=== PATIENT | female | born 1935 | race Caucasian/White ===

== ENCOUNTER 2018-03-03 06:49 | Day surgery (SDC) | payer MEDICARE, OTHER, SELFPAY ==
--- NOTE | 2018-03-02 17:22 | P.OP_ITS ---
Procedure & Clinicians Procedure: Female cataract left Date of service: March 03, 2008 Preoperative diagnoses: 1. Cataract left eye Diabetes Previous dialysis History of stroke Sleep apnea lPost toperative diagnoses: 1. Status post cataract removal with phacoemulsification and intraocular lens implant left eye Procedure: Phacoemulsification with posterior chamber intraocular lens implant left eye Surgeon: Debora Woods MD Complications:None Specimen: None Implant: ZCBOO+22.0 Blood loss: None Anesthesia: Retrobulbar with monitored standby Anesthesiologist: Piter Vázquez MD Description of procedure: Dictated by: Debora Woods MD Copy to: [facility] next
--- NOTE | 2018-03-02 17:36 | PM.OP.1 ---
Procedure & Clinicians Procedure: Female cataract left Date of service: March 03, 2008 Preoperative diagnoses: 1. Cataract left eye Diabetes Previous dialysis History of stroke Sleep apnea Post operative diagnoses: 1. Status post cataract removal with phacoemulsification and intraocular lens implant left eye Procedure: Phacoemulsification with posterior chamber intraocular lens implant left eye Surgeon: Debora Woods MD Complications:None Specimen: None Implant: ZCBOO+22.0 Blood loss: None Anesthesia: Retrobulbar with monitored standby Anesthesiologist: Piter Vázquez MD Description of procedure: Patient is a an 82 year old with decreased vision due to cataract which is affecting activities of daily living. She wants surgery to improve vision. She has a tremor and is on warfarin and is diabetic. She has taken to the operating room and given IV sedation. A retrobulbar block insert consisting of 6 cc of 2% xylocaine without epinephrine mixed half and half with 0.5% Marcaine with 1 cc of hyaluronidase added is placed between the medial and lateral 1/3 of the inferior orbital rim. Lid akinesia is obtain with 1% xylocaine with epinephrine infiltrated along the lid margin. The eye is manually massaged for 30 sec, prepped using Betadine solution, and draped in the usual sterile fashion. Temporal approach was made, a 1 mm side-port incision was made at the 12 o'clock meridian. Phenylephrine 1.5% mixed with 1% xylocaine 0.2 cc was placed into the anterior chamber. Viscoat followed by Mau was then placed. A 2.6 mm clear incision with a 2.6 mm blade was placed at the 3 o'clock meridian. A 360 degree capsulorrhexis style capsulotomy was then performed with a cystitome needle on a Healon. Hydrodelineation and hydrodissection were performed. The phacoemulsification unit is introduced, and sculpting notice used to groove the central lens. It is then removed in chopping mode. Epi nucleus is removed with epinuclear mode and irrigation aspiration was used to remove the peripheral cortex. The posterior capsule is polished. The intraocular lens is selected, inspected, power confirmed, and placed in the posterior chamber. The pupil was constricted. The wound was stromally hydrated and tested for leaks, there was none and was left sutureless. Vigamox 0.1 cc was placed into the anterior chamber. Kenalog 0.2 cc was placed in the superior subconjunctival space. A drop of antibiotic and was placed and the eye was patched and shielded. The patient was stable and returned to the recovery room in excellent condition. Dictated by: Debora Woods MD Copy to: [facility]
--- NOTE | 2018-03-02 17:53 | PM.PREOP ---
Pre-operative Note Interval Note Pre-op Check: History & Physical Reviewed by Physician
[2018-03-03] MEDS: CATARACT EYE COMPOUND (10 DROPS/SYRINGE) 3 DROPS EYE-OP (07:27)
[2018-03-03] MEDS: PROPARACAINE 0.5% OPHTH SOL 2 DROPS EYE-OP (07:29)
[2018-03-03 07:30] VITALS: BMI 32.8
--- NOTE | 2018-03-03 07:49 | PM.PREOP ---
Pre-operative Note Interval Note Pre-op Check: History & Physical Reviewed by Physician
[2018-03-03 07:50] VITALS: BP 144/68; PULSE 67; RESP 16; TEMP 36.4; O2SAT 96
[2018-03-03] MEDS: BALANCED SALT IRRIG SOLN NO.2 15 ML IRRIG.SOLN IRR (08:29)
[2018-03-03] MEDS: CHONDROIDTIN/SOD HYALURONATE 1.05 ML SYRINGE INTRAOCULA (08:30)
[2018-03-03] MEDS: ERYTHROMYCIN OPHTH 1 GM OINT 1 APPLIC EYE-LEFT (08:30)
[2018-03-03] MEDS: HYALURONATE SODIUM 10 MG/ML SYRINGE INJ (08:31)
[2018-03-03] MEDS: LIDOCAINE 1% W/EPI INJ 4 ML INJ (08:31)
[2018-03-03] MEDS: OFLOXACIN 0.3% OPHTH 5 ML 2 DROPS EYE-LEFT (08:32)
[2018-03-03] MEDS: MOXIFLOXACIN OPHTH DROPS 3 ML BOTTLE 2 DROPS INJ (08:32)
[2018-03-03] MEDS: PHENYLEPHRINE/LIDOCAINE 3ML VIAL (OR) EYE-OP (08:33)
[2018-03-03] MEDS: TRIAMCINOLONE 50 MG/5 ML VIAL INJ (08:33)
[2018-03-03] MEDS: BALANCED SALT IRRIG SOLN NO.2 500 ML, EPINEPHrine 1 MG IRR (08:34)
[2018-03-03] MEDS: LIDOCAINE 2% 4 ML, BUPIVACAINE 0.5% (PF) 4 ML, HYALURONIDASE 150 UNIT INJ (08:34)
--- NOTE | 2018-03-03 08:36 | SUR.OPER ---
Supine on eye stretcher, head on extension cradle secured with tape. Arms tucked at sides with blanket. Pillow under knees.
[2018-03-03 09:06] VITALS: BP 140/57; PULSE 63; RESP 16; TEMP 36.6
[2018-03-03 09:25] VITALS: BP 138/62; PULSE 63; RESP 15; TEMP 36.4; O2SAT 97
== END 2018-03-03 09:24 | disposition home or self-care (01) ==
PROVIDERS: Family Provider Internal Medicine; PCP Internal Medicine; Visit Provider Ophthalmology
DX: H25.12 Age-related nuclear cataract, left eye (principal); E11.9 Type 2 diabetes mellitus without complications; G47.33 Obstructive sleep apnea (adult) (pediatric); I10 Essential (primary) hypertension; J44.9 Chronic obstructive pulmonary disease, unspecified; D64.9 Anemia, unspecified; J45.909 Unspecified asthma, uncomplicated; E05.00 Thyrotoxicosis with diffuse goiter without thyrotoxic crisis or storm
CPT/HCPCS: J0171; J2704; J3301; J3470

== ENCOUNTER 2018-09-09 17:53 | Emergency (ER) | payer MEDICARE, OTHER, SELFPAY ==
[2018-09-09 18:02] VITALS: BP 156/60; PULSE 65; RESP 18; TEMP 36.3; O2SAT 100
--- NOTE | 2018-09-09 18:09 | DI.RAD.S_ITS ---
PROCEDURE: XR WRIST RT 2V INDICATIONS: right arm pain after fall TECHNIQUE: 2 views of the wrist were acquired. COMPARISON: None. FINDINGS: Bones: No fractures or dislocations. No suspicious bony lesions. Severe first CMC joint osteoarthritis. Radiocarpal osteophyte is noted. There is widening of the scapholunate interval which can be associated with ligament injury. Scaphoid view: Not requested Soft tissues: No suspicious soft tissue calcifications. IMPRESSION: 1. No fracture. No acute osseous lesion. If there are persistent symptoms or clinical suspicion for pathology, then repeat radiographs or advanced imaging (CT, MRI or bone scan) should be considered for further evaluation. 2. Slight widening of the scapholunate interval which can be associated with scapholunate ligament injury. Recommend nonemergent MRI of the wrist are there is clinical concern for ligamentous injury. Dictated by: Sylwia Sy MD, PhD on 09/09/2018 at 18:36 Approved by: Sylwia Sy MD, PhD on 09/09/2018 at 18:38
--- NOTE | 2018-09-09 18:09 | DI.RAD.S_ITS ---
PROCEDURE: XR ELBOW RT 2V INDICATIONS: right arm pain after fall TECHNIQUE: 2 views of the elbow were acquired. COMPARISON: None. FINDINGS: Bones: No fractures or dislocations. No suspicious bony lesions. Soft tissues: No elbow joint effusion. No suspicious soft tissue calcifications. Multiple surgical clips noted in the antecubital fossa soft tissues. IMPRESSION: No fracture. No acute osseous lesion. If there are persistent symptoms or clinical suspicion for pathology, then repeat radiographs or advanced imaging (CT, MRI or bone scan) should be considered for further evaluation. Dictated by: Sylwia Sy MD, PhD on 09/09/2018 at 18:38 Approved by: Sylwia Sy MD, PhD on 09/09/2018 at 18:39
--- NOTE | 2018-09-09 18:09 | DI.RAD.S_ITS ---
PROCEDURE: XR SHOULDER RT MIN 2V INDICATIONS: right arm pain after fall TECHNIQUE: 3 views of the shoulder were acquired. COMPARISON: [facility], CR, XR ELBOW RT 2V, 09/09/2018, 18:12. FINDINGS: Bones: Lucency noted in the lateral margin of the right humeral head compatible with nondisplaced fracture. Soft tissues: No suspicious soft tissue calcifications. IMPRESSION: Nondisplaced proximal right humerus fracture. Dictated by: Sylwia Sy MD, PhD on 09/09/2018 at 18:39 Approved by: Sylwia Sy MD, PhD on 09/09/2018 at 18:41
--- NOTE | 2018-09-09 18:14 | ED.FALL ---
HPI - Fall General Chief Complaint: Fall Stated Complaint: Fall Time Seen by Provider: 09/09/18 18:14 Source: patient Mode of arrival: ambulatory Limitations: no limitations History of Present Illness HPI Narrative: 83-year-old female on Coumadin here for evaluation of a mechanical fall that happened just prior to arrival. She states that she tripped over an object that was on the ground. Landed on her right side. Did not hit her head. No loss of consciousness. Does complain of pain in her right shoulder and right elbow. Has an abrasion over her right forearm. Was able to ambulate afterwards. Related Data Home Medications Medication Instructions Recorded Confirmed [IMDUR] 60 mg OR Q DAY #0 01/23/17 03/03/18 carvedilol [Coreg] 6.25 mg PO BID #0 01/23/17 03/03/18 warfarin [Coumadin] 5.5 mg PO QDAY #0 01/23/17 03/03/18 Plavix 75 mg PO DAILY 03/03/18 03/03/18 amlodipine 5 mg PO DAILY 03/03/18 03/03/18 Previous Rx's Medication Instructions Recorded hydrocodone-acetaminophen [Lisco] 1 tab PO Q4-6H PRN #10 tab 09/09/18 Allergies Allergy/AdvReac Type Severity Reaction Status Date / Time lisinopril Allergy Mild COUGH Verified 03/03/18 07:13 lovastatin Allergy Mild MOUTH Verified 03/03/18 07:13 BROKE OUT IN SORES niacin Allergy Mild RED AND Verified 03/03/18 07:13 ITCHY ALL OVER Sulfa (Sulfonamide Allergy Mild CHILDHOOD Verified 03/03/18 07:13 Antibiotics) REACTION azathioprine Allergy Unknown Verified 03/03/18 07:13 shellfish derived Allergy Unknown Verified 03/03/18 07:13 [SHELLFISH DERIVED] leflunomide AdvReac Unknown Verified 03/03/18 07:13 Review of Systems Constitutional Denies fever(s) and Denies weakness Eyes Denies change in vision ENT Ears, Nose, Mouth, and Throat: Denies vertigo, Denies dizziness, Denies neck pain and Denies disequilibrium Cardiovascular Denies chest pain, Denies palpitations and Denies dyspnea Respiratory Denies dyspnea Gastrointestinal Gastrointestinal: Denies abdominal pain, Denies nausea and Denies vomiting Musculoskeletal Denies neck pain, Denies numbness and Denies tingling Comments: Right shoulder pain right elbow pain Integumentary/Breasts Comments: abrasion of the right forearm Neurologic Denies vertigo, Denies dizziness, Denies focal weakness, Denies numbness, Denies radicular pain, Denies tingling, Denies disequilibrium and Denies weakness Endocrine Denies palpitations Hematologic/Lymphatic Comments: on Coumadin Exam Initial Vital Signs Initial Vital Signs: Vital Signs Temperature 97.3 F L 09/09/18 18:02 Pulse Rate 65 09/09/18 18:02 Respiratory Rate 18 09/09/18 18:02 Blood Pressure 156/60 H 09/09/18 18:02 Pulse Oximetry 100 09/09/18 18:02 HENMT Head: normal to inspection and normocephalic Resp Effort & Inspection: normal respiratory effort Cardio Rate: regular rate Back/Spine/Pelvis Cervical Spine: No pain with cervical ROM, No cervical spasm and No cervical spinal tenderness Thoracic/Lumbar Spine: No thoracic spinal tenderness and No lumbar spinal tenderness Skin Other: 1 cm abrasion to the ulnar aspect of the right forearm. No active bleeding. Neuro General: alert, awake and oriented x3 Speech: speech normal Extrem Other: Tenderness to palpation on the right shoulder with limited range of motion in abduction. Right elbow unremarkable. Right wrist unremarkable. Right hand unremarkable. Bilateral lower extremities unremarkable. Hips unremarkable. Psych Appearance: grossly normal and well kempt [facility] Medical History Coronary artery disease (Acute) Hyperlipidemia (Acute) Hypertension (Acute) Surgical History Hx of CABG (Acute) Social History household members: spouse Course Orders Ordered: ED Orders 09/09/18 18:09 XR elbow RT min 3V Stat XR shoulder RT min 2V Stat XR wrist RT min 3V Stat Discontinued Medications Hydrocodone Bitart/Acetaminophen (Lisco 5/325) 1 tab PO NOW ONE Stop: 09/09/18 19:02 Last Admin: 09/09/18 19:21 Dose: 1 tab Hydrocodone Bitart/Acetaminophen (Vicodin Prepack) 1 bottle MISC SEEINSTR ONE Stop: 09/09/18 19:04 Last Admin: 09/09/18 19:21 Dose: 1 bottle Vital Signs - 8 hr 09/09/18 18:02 09/09/18 19:26 Temperature 97.3 F L Pulse Rate 65 70 Respiratory Rate 18 19 Blood Pressure 156/60 H Blood Pressure [Left Arm] 168/86 H Pulse Oximetry 100 99 MDM - Fall Imaging Data x-ray elbow: Radiologist's impression: PROCEDURE: XR ELBOW RT 2V INDICATIONS: right arm pain after fall TECHNIQUE: 2 views of the elbow were acquired. COMPARISON: None. FINDINGS: Bones: No fractures or dislocations. No suspicious bony lesions. Soft tissues: No elbow joint effusion. No suspicious soft tissue calcifications. Multiple surgical clips noted in the antecubital fossa soft tissues. IMPRESSION: No fracture. No acute osseous lesion. If there are persistent symptoms or clinical suspicion for pathology, then repeat radiographs or advanced imaging (CT, MRI or bone scan) should be considered for further evaluation. Dictated by: Sylwia Sy MD, PhD on 09/09/2018 at 18:38 Approved by: Sylwia Sy MD, PhD on 09/09/2018 at 18:39 x-ray shoulder: Radiologist's impression: [address] [address] XRay Report Signed Patient: Joselyn Anderson R#: [id number] : 6Acct:[id number] Age/Sex: 83 / FDate of Service: 09/09/18 Loc: ED Accession Number: [id number] Procedure: XR shoulder RT min 2V Ordering Provider: Memo Kelsey D.O. PROCEDURE: XR SHOULDER RT MIN 2V INDICATIONS: right arm pain after fall TECHNIQUE: 3 views of the shoulder were acquired. COMPARISON: [facility] , XR ELBOW RT 2V, 09/09/2018, 18:12. FINDINGS: Bones: Lucency noted in the lateral margin of the right humeral head compatible with nondisplaced fracture. Soft tissues: No suspicious soft tissue calcifications. IMPRESSION: Nondisplaced proximal right humerus fracture. Dictated by: Sylwia Sy MD, PhD on 09/09/2018 at 18:39 Approved by: Sylwia Sy MD, PhD on 09/09/2018 at 18:41 x-ray wrist: Radiologist's impression: [address] [address] XRay Report Signed Patient: Joselyn Anderson LMR#: [id number] : 6Acct:[id number] Age/Sex: 83 / FDate of Service: 09/09/18 Loc: ED Accession Number: [id number] Procedure: XR wrist RT min 3V Ordering Provider: Memo Kelsey D.O. PROCEDURE: XR WRIST RT 2V INDICATIONS: right arm pain after fall TECHNIQUE: 2 views of the wrist were acquired. COMPARISON: None. FINDINGS: Bones: No fractures or dislocations. No suspicious bony lesions. Severe first CMC joint osteoarthritis. Radiocarpal osteophyte is noted. There is widening of the scapholunate interval which can be associated with ligament injury. Scaphoid view: Not requested Soft tissues: No suspicious soft tissue calcifications. IMPRESSION: 1. No fracture. No acute osseous lesion. If there are persistent symptoms or clinical suspicion for pathology, then repeat radiographs or advanced imaging (CT, MRI or bone scan) should be considered for further evaluation. 2. Slight widening of the scapholunate interval which can be associated with scapholunate ligament injury. Recommend nonemergent MRI of the wrist are there is clinical concern for ligamentous injury. Dictated by: Sylwia Sy MD, PhD on 09/09/2018 at 18:36 Approved by: Sylwia Sy MD, PhD on 09/09/2018 at 18:38 [facility] Narrative Medical decision making narrative: This was an obvious mechanical fall. She is on Coumadin but did not hit her head. Will hold on head CT. Her physical exam is consistent with a right proximal humerus fracture which was seen on the x-rays. Skin abrasion is not amenable to stitches. She was given care instructions with regard to this. She was given a sling. We did discuss the proximal humerus fracture. We did discuss the importance of early mobility. Cervical spine cleared by nexus. Patient given return precautions. She was given a CD with the images from her x-rays to follow up with the Orthopedic Department on the [facility]. Both her and her expressed understanding and agreement. Discharge Plan Departure Patient Disposition: Home Clinical Impression: Fracture, humerus closed, Fall, Abrasion of skin Instructions: How to Prevent Falls, DI for Abrasion, Humeral Shaft Fracture Activity Restrictions/Additional Instructions: I recommend that tomorrow you contact Your primary care doctor and also the Orthopedic Department on the [facility]. take the CD that you were given with your x-rays on it to the Orthopedic Department. Take the pain medication you were given this evening as needed for breakthrough pain. Return to the emergency department for any new or worsening symptoms Prescriptions: New hydrocodone-acetaminophen [Lisco] 5-325 mg tablet 1 tab PO Q4-6H PRN (Reason: pain) Qty: 10 RF: 0 No Action warfarin [Coumadin] 5 MG tablet 5.5 mg PO QDAY Qty: 0 RF: 0 carvedilol [Coreg] 6.25 MG tablet 6.25 mg PO BID Qty: 0 RF: 0 [IMDUR] 60 mg OR Q DAY Qty: 0 RF: 0 amlodipine 5 mg Tablet 5 mg PO DAILY RF: 0 Plavix 75 mg PO DAILY RF: 0
[2018-09-09] MEDS: HYDROCODONE/ACET 5/325 TABLET 1 TAB PO (19:21)
[2018-09-09] MEDS: HYDROCODONE/ACET 5/325 PREPACK 1 BOTTLE MISC (19:21)
[2018-09-09 19:26] VITALS: BP 168/86; PULSE 70; RESP 19; O2SAT 99
== END 2018-09-09 20:22 | disposition home or self-care (01) ==
PROVIDERS: Emergency Provider Emergency Medicine; Family Provider Internal Medicine; PCP Internal Medicine
DX: S42.291A Other displaced fracture of upper end of right humerus, initial encounter for closed fracture (principal); S50.811A Abrasion of right forearm, initial encounter; W01.0XXA Fall on same level from slipping, tripping and stumbling without subsequent striking against object, initial encounter; Z79.01 Long term (current) use of anticoagulants
CPT/HCPCS: 73030; 73080; 73110; 99282; 99283

== ENCOUNTER → 2020-08-27 09:17 | Outpatient (CLI) | payer MEDICARE, OTHER, SELFPAY ==
[2020-08-27 11:35] LABS: COVID19 -Nasal RAPID Negative (Negative)
== END ==
PROVIDERS: Family Provider Internal Medicine; PCP Internal Medicine; Visit Provider Physician Assistant
DX: Z11.59 Encounter for screening for other viral diseases (principal)
CPT/HCPCS: 87635

== ENCOUNTER 2020-08-28 10:24 | Day surgery (SDC) | payer MEDICARE, OTHER, SELFPAY ==
[2020-08-24 15:05] VITALS: BMI 31.6
[2020-08-28 11:19] VITALS: BP 154/69; PULSE 74; RESP 16; TEMP 36.3; O2SAT 94; BMI 31.6
--- NOTE | 2020-08-28 12:32 | PM.PREOP ---
Pre-operative Note COVID-19 COVID-19 status: Negative Result date/Date tested (Pos, Neg/Pending): 08/27/20 Interval Note History & Physical reviewed/Exam performed by Physician: Yes Changes to H&P: No
--- NOTE | 2020-08-28 12:37 | SUR.OPER ---
Supine on padded OR bed, head on pillow, left arm secured on padded arm boards at <90 degrees abduction, right arm prepped into field and supported on hand table, legs uncrossed, safety belt at thigh, tape over blanket over lower legs.
[2020-08-28] MEDS: BUPIVACAINE 0.5% W/ EPI (PF) 30 ML VIAL INJ (13:06)
[2020-08-28 13:20] VITALS: BP 151/66; PULSE 65; RESP 12; TEMP 36.7; O2SAT 95
--- NOTE | 2020-08-28 13:22 | PM.OP.1 ---
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 Post-op diagnosis: same Procedure & Clinicians Procedure: Manipulation under anesthesia of the PIP joint of the right ring finger. Right ring finger A1 samantha release. Right ring finger contracture release. Same procedure as scheduled: Yes Indications: Significant contracture to the PIP joint of the right ring finger. Surgeon: Vasiliy Squires Click Yes if Unassisted: Yes Anesthesia Type: MAC +/- Operative Notes Closure Type: primary Estimated Blood Loss (mL): 0 Blood products transfused: none Tourniquet time (min): 11 Procedure in detail: On date of service, patient was met in the holding area. The surgery was once again discussed with the patient and any remaining questions or concerns were answered fully. The operative site was signed and witnessed by the OR staff. Patient was taken back to the operating theater and placed on the operating table in a supine position. Great care was taken to ensure that all bony prominences were properly padded. Time-out was performed verifying patient's name, procedure, and operative site. A well-padded tourniquet was placed up along the upper extremity. The arm was then prepped and draped in the normal sterile fashion. Esmarch was used to exsanguinate the limb and the tourniquet was turned up to 250 mm of mercury. An incision was made in the distal palmar crease in line with the ring finger. Fifteen blade was used to incise through skin and fascial tissue. Blunt dissection was performed with tenotomy scissors until the Flexor tendon was visualized as well as the neurovascular bundles on either side.. The neurovascular bundles were found And protected. The A1 samantha was sharply split along roof of the tunnel. Palmar scarring proximal to the A1 samantha was excised sharply using a 15 blade. This on locked the finger. Patient still had a contracture at the PIP joint. A manipulation under anesthesia was performed breaking up any stiffness or scarring at the PIP joint. This allowed us to fully extend both the MCP as well as PIP joints. The digital nerves were inspected and were free of any damage throughout the entire incision. The wound was then copiously irrigated and then closed with 5 0 nylon. Finger was cleaned, dried, and dressed. Patient was placed into a splint keeping the Finger fully extended. Patient was taken to the PACU in stable condition. 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 After that it is just nighttime splinting. At that point no restrictions to range of motion throughout the day. No lifting more than 2-3 lb.
[2020-08-28] MEDS: HYDROCODONE/ACET 5/325 TABLET 1 TAB PO (13:49)
[2020-08-28 14:00] VITALS: BP 128/82; PULSE 61; RESP 16; TEMP 36.7; O2SAT 96
--- NOTE | 2020-08-28 14:16 | SUR.PHASEII ---
Pt states right hand and fingers are waking up and feel tingly. Oxycodone given prophylactically at 1349.
== END 2020-08-28 14:05 | disposition home or self-care (01) ==
PROVIDERS: Family Provider Internal Medicine; PCP Internal Medicine; Referring Provider Internal Medicine; Visit Provider Orthopaedic Surgery
PROC: (CPT 26055; principal; 2020-08-28 12:00)
DX: M65.341 Trigger finger, right ring finger (principal); M65.332 Trigger finger, left middle finger; M24.541 Contracture, right hand; J44.9 Chronic obstructive pulmonary disease, unspecified; Z86.73 Personal history of transient ischemic attack (TIA), and cerebral infarction without residual deficits; I25.2 Old myocardial infarction; Z79.01 Long term (current) use of anticoagulants
CPT/HCPCS: 26123; 85610

== ENCOUNTER 2022-03-12 07:27 | Inpatient (IN) | payer MEDICARE, OTHER, SELFPAY ==
[2022-03-12] VITALS (30 sets, daily range): BP systolic 105–165; BP diastolic 34–79; PULSE 55–84; RESP 16–24; TEMP 36.1–38.3; O2SAT 87–99; BMI 36.6
[2022-03-12] MEDS: ALBUTEROL 2.5 MG/3 ML NEB (ADULT) INH ×3 (07:33→19:16)
--- NOTE | 2022-03-12 07:34 | DI.RAD.S_ITS ---
PROCEDURE: XR CHEST 1V INDICATIONS: SOB, cough, fever. TECHNIQUE: One view of the chest was acquired. COMPARISON: [facility], , CHEST 1 VIEW, 01/29/2016, 21:19. FINDINGS: Surgical changes and devices: None. Lungs and pleura: Patchy pulmonary opacities are present within the left lateral mid lung and at the right lung base. No pleural effusion or pneumothorax. Mediastinum: Mediastinal contours appear normal. Heart size is normal. Bones and chest wall: No suspicious bony lesions. Severe degenerative changes are present at the bilateral glenohumeral joints. Overlying soft tissues appear unremarkable. IMPRESSION: Patchy bilateral pulmonary consolidation suspicious for multifocal pneumonia. Short interval follow-up recommended to exclude underlying neoplasm. Dictated by: Karla Waldrop M.D. on 03/12/2022 at 8:43 Approved by: Karla Waldrop M.D. on 03/12/2022 at 8:44
--- NOTE | 2022-03-12 07:37 | ED_ITS ---
HPI - SOB/Dyspnea General Chief Complaint: Shortness of Breath/Dyspnea Stated Complaint: COPD exacerbation Time Seen by Provider: 03/12/22 07:34 Source: patient, EMS and old records reviewed Mode of arrival: EMS Limitations: no limitations History of Present Illness HPI Narrative: This is a 86-year-old female who presents for shortness of breath with a history of COPD, prior CABG with infection of sternotomy and removal of wires and washout, with CKD with prior dialysis from 2014 to 2015 with fistula that has n ot been accessed, hypertension, dyslipidemia, chronic pain, hypothyroidism. Patient states she has had nasal congestion with a cough with grayish productive sputum for the past 2 weeks. She has developed fevers in the last day. She has not had any chest pain or pressure, she has had increasing shortness of breath and overnight had a significant worsening. Patient denies any swelling in her extremities. No nausea or vomiting. She has chronic constipation from her narcotics. Patient has some urinary incontinence but no dysuria, urgency or frequency. Patient does use Advair daily, she states she does not normally use albuterol and has not been using her albuterol at home. EMS found her at 70% room air, initiated Solu-Medrol 125 mg, DuoNeb x1 and non-rebreather at 10 L and patient's oxygen improved to 95%. Patient's primary care is Caryn Heredia. Related Data Home Medications Medication Instructions Recorded Confirmed carvedilol 6.25 mg tablet (Coreg) 6.25 mg PO BID ##0 01/23/17 03/12/22 amlodipine 5 mg tablet 5 mg PO BID 03/03/18 03/12/22 amitriptyline 25 mg tablet 25 mg PO BEDTIME 08/28/20 03/12/22 clopidogrel 75 mg tablet 75 mg PO DAILY 08/28/20 03/12/22 duloxetine 60 mg capsule,delayed 60 mg PO DAILY 08/28/20 03/12/22 release fluticasone 250 mcg-salmeterol 50 1 ea inhalation BID 08/28/20 03/12/22 mcg/dose blistr powdr for inhalation (Advair Diskus) isosorbide mononitrate 120 mg 120 mg PO DAILY 08/28/20 03/12/22 tablet,extended release 24 hr levothyroxine 150 mcg tablet 150 mcg PO DAILY 08/28/20 03/12/22 (Synthroid) rosuvastatin 40 mg tablet 40 mg PO DAILY 08/28/20 03/12/22 tramadol 50 mg tablet 50 mg PO BID 08/28/20 03/12/22 albuterol 90 mcg/actuation aerosol 90 mcg inhalation 4-6XD PRN COPD 03/12/22 03/12/22 inhaler diclofenac sodium 1 % topical gel 0.01 g topical DIRECTED PRN 03/12/22 03/12/22 Pain (Scale Score 1-3) fluticasone 250 mcg-salmeterol 50 1 inh inhalation BID 03/12/22 03/12/22 mcg/dose blistr powdr for inhalation (Advair Diskus) folic acid 1 mg tablet 1 mg PO DAILY 03/12/22 03/12/22 furosemide 40 mg tablet 40 mg PO DAILY 03/12/22 03/12/22 hydrocortisone 5 mg tablet 5 mg PO BID 03/12/22 03/12/22 potassium 20 mg chewable tablet 40 mg PO DAILY 03/12/22 03/12/22 Previous Rx's Medication Instructions Recorded hydrocodone 5 mg-acetaminophen 325 1 tab PO Q4-6H PRN pain #10 tabs 09/09/18 mg tablet ([place]) hydrocodone 5 mg-acetaminophen 325 2 tab PO Q4-6H PRN pain #30 tabs 08/28/20 mg tablet ([place]) doxycycline hyclate 100 mg capsule 100 mg PO BID #2 caps 03/15/22 prednisone 20 mg tablet 40 mg PO DAILY #1 tab 03/15/22 Allergies Allergy/AdvReac Type Severity Reaction Status Date / Time shellfish derived Allergy Severe anaphalxis Verified 08/28/20 11:07 [SHELLFISH DERIVED] lisinopril Allergy Mild COUGH Verified 08/28/20 11:07 lovastatin Allergy Mild MOUTH Verified 08/28/20 11:07 BROKE OUT IN SORES niacin Allergy Mild RED AND Verified 08/28/20 11:07 ITCHY ALL OVER Sulfa (Sulfonamide Allergy Mild CHILDHOOD Verified 08/28/20 11:07 Antibiotics) REACTION azathioprine Allergy Unknown Verified 08/28/20 11:07 leflunomide AdvReac Unknown Verified 08/28/20 11:07 Review of Systems Review of Systems ROS Unobtainable: All systems reviewed & are unremarkable except as noted in HPI and below Patient History Medical History Anemia Asthma COPD (chronic obstructive pulmonary disease) Coronary artery disease CVA (cerebral vascular accident) Depression Diabetes Distal radius fracture, left Distal radius fracture, right DJD (degenerative joint disease) Fibromyalgia History of renal dialysis Hyperlipidemia Hypertension Myocardial infarction Sleep apnea Spinal stenosis Thyroid disease Valvular heart disease Surgical History History of knee replacement History of phacoemulsification of cataract of right eye with intraocular lens implantation (12/02/17) Hx of CABG Hx of cholecystectomy Hx of tonsillectomy Family History (Updated 03/12/22 @ 15:12 by Fidel Nielsen DO) Mother Cancer Father Congestive heart failure Social History household members: spouse Smoking Status: Never smoker alcohol intake: current Smoking Status: Never smoker alcohol intake frequency: holidays/special occasions only Substance Use Type: does not use Exam Narrative Exam Narrative: GEN: Elderly female, alert and oriented x 3, patient appears to be in mild-to- moderate distress. Patient feels warm to the touch. HEENT: Atraumatic, pupils are equal round reactive to light, extraocular movements are intact. HEART: Regular rate and rhythm without murmur, clicks, rubs. Pulses equal in upper lower extremities. Patient does not have any swelling bilateral lower extremities LUNGS:Lungs decreased bilaterally at the bases, patient has some expiratory wheeze bilateral upper anterior chest, no rales, crackles, chest moves symmetrically, positive for tachypnea. Patient speaks in 3-4 word sentences. ABD:bowel sounds normal, soft, non-tender, no guarding, rebound, rigidity, no masses noted, no hepatosplenomegaly :No CVA tenderness MSCL: Non-tender, no muscle atrophy, muscles strength 5/5 upper and lower extremities, full range of motion NEURO:CN 2-12 intact, sensation normal SKIN: No rash, erythema or other skin changes. Initial Vital Signs Initial Vital Signs: Vital Signs Pulse Rate 81 03/12/22 07:29 Pulse Oximetry 96 03/12/22 07:29 Oxygen Delivery Method 03/12/22 07:29 Oxygen Flow Rate 15 03/12/22 07:29 Course Orders Ordered: Discontinued Medications Acetaminophen (Acetaminophen 325 Mg Tablet) 975 mg PO NOW ONE Stop: 03/12/22 07:38 Last Admin: 03/12/22 08:04 Dose: 975 mg Documented By: CARLOS Hydrocodone Bitart/Acetaminophen (Hydrocodone/Acet 5/325 Tablet) 2 tab PO Q4HR PRN PRN Reason: Pain, Moderate (4-6) Albuterol (Albuterol 2.5 Mg/3 Ml Neb (Adult)) 2.5 mg INH NOW ONE Stop: 03/12/22 07:32 Last Admin: 03/12/22 07:33 Dose: 2.5 mg Documented By: RAJWINDER Albuterol (Albuterol 2.5 Mg/3 Ml Neb (Adult)) 2.5 mg INH [id number] [facility] Last Admin: 03/15/22 14:17 Dose: 2.5 mg Documented By: Admin: 03/15/22 11:17 Dose: Not Given Documented By: Admin: 03/15/22 08:34 Dose: 2.5 mg Documented By: Admin: 03/14/22 23:15 Dose: 2.5 mg Documented By: Admin: 03/14/22 19:28 Dose: 2.5 mg Documented By: Admin: 03/14/22 15:57 Dose: 2.5 mg Documented By: Admin: 03/14/22 09:32 Dose: 2.5 mg Documented By: Admin: 03/14/22 09:10 Dose: Not Given Documented By: Admin: 03/14/22 00:31 Dose: Not Given Documented By: Admin: 03/13/22 19:23 Dose: 2.5 mg Documented By: Admin: 03/13/22 16:03 Dose: 2.5 mg Documented By: Admin: 03/13/22 09:40 Dose: 2.5 mg Documented By: Admin: 03/13/22 08:58 Dose: Not Given Documented By: Admin: 03/12/22 23:34 Dose: Not Given Documented By: Admin: 03/12/22 19:16 Dose: 2.5 mg Documented By: Admin: 03/12/22 17:15 Dose: 2.5 mg Documented By: DEJA Albuterol (Albuterol 2.5 Mg/3 Ml Neb (Adult)) 2.5 mg INH [id number] PRN PRN Reason: Shortness Of Breath Albuterol/Ipratropium (Albuterol/Ipratropium 3 Ml Ampul) 3 ml INH RTBID [facility] Amitriptyline HCl (Amitriptyline 25 Mg Tablet) 25 mg PO BEDTIME [facility] Last Admin: 03/14/22 21:52 Dose: 25 mg Documented By: Admin: 03/13/22 21:24 Dose: 25 mg Documented By: Admin: 03/12/22 21:01 Dose: 25 mg Documented By: AMANDEEP Amlodipine Besylate (Amlodipine 5 Mg Tablet) 5 mg PO BID [facility] Last Admin: 03/15/22 09:51 Dose: 5 mg Documented By: Admin: 03/14/22 21:39 Dose: 5 mg Documented By: Admin: 03/14/22 09:20 Dose: 5 mg Documented By: Admin: 03/13/22 21:24 Dose: 5 mg Documented By: Admin: 03/13/22 09:20 Dose: 5 mg Documented By: Admin: 03/12/22 21:01 Dose: 5 mg Documented By: AMANDEEP Budesonide (Budesonide 0.5 Mg/2 Ml Neb) 0.5 mg INH RTBID [facility] Last Admin: 03/15/22 08:35 Dose: 0.5 mg Documented By: Admin: 03/14/22 19:28 Dose: 0.5 mg Documented By: Admin: 03/14/22 09:32 Dose: 0.5 mg Documented By: Admin: 03/13/22 19:24 Dose: 0.5 mg Documented By: Admin: 03/13/22 09:39 Dose: 0.5 mg Documented By: Admin: 03/13/22 09:12 Dose: Not Given Documented By: Admin: 03/12/22 19:16 Dose: 0.5 mg Documented By: SHEILA Carvedilol (Carvedilol 3.125 Mg Tablet) 6.25 mg PO BID [facility] Last Admin: 03/15/22 09:50 Dose: 6.25 mg Documented By: Admin: 03/14/22 21:38 Dose: 6.25 mg Documented By: Admin: 03/14/22 09:42 Dose: 3.125 mg Documented By: Admin: 03/13/22 21:25 Dose: 6.25 mg Documented By: Admin: 03/13/22 09:19 Dose: 6.25 mg Documented By: Admin: 03/12/22 21:01 Dose: 6.25 mg Documented By: AMANDEEP Clopidogrel Bisulfate (Clopidogrel 75 Mg Tablet) 75 mg PO DAILY [facility] Last Admin: 03/14/22 09:21 Dose: 75 mg Documented By: Admin: 03/13/22 09:20 Dose: 75 mg Documented By: TORRI Doxycycline Hyclate (Doxycycline Hyclate 100 Mg Tablet) 100 mg PO BID [facility] Last Admin: 03/15/22 09:51 Dose: 100 mg Documented By: Admin: 03/14/22 21:39 Dose: 100 mg Documented By: Admin: 03/14/22 09:42 Dose: 100 mg Documented By: Admin: 03/13/22 21:25 Dose: 100 mg Documented By: Admin: 03/13/22 09:20 Dose: 100 mg Documented By: Admin: 03/12/22 21:01 Dose: 100 mg Documented By: AMANDEEP Duloxetine HCl (Duloxetine 30 Mg Capsule) 60 mg PO DAILY [facility] Last Admin: 03/15/22 09:50 Dose: 60 mg Documented By: Admin: 03/14/22 09:20 Dose: 60 mg Documented By: Admin: 03/13/22 09:20 Dose: 60 mg Documented By: TORRI Furosemide (Furosemide 40 Mg Tablet) 40 mg PO DAILY [facility] Last Admin: 03/15/22 09:51 Dose: 40 mg Documented By: Admin: 03/14/22 09:21 Dose: 40 mg Documented By: Admin: 03/13/22 09:20 Dose: 40 mg Documented By: TORRI Hydrocortisone (Hydrocortisone 10 Mg Tablet) 5 mg PO BID [facility] Last Admin: 03/14/22 09:20 Dose: 5 mg Documented By: Admin: 03/13/22 21:25 Dose: 5 mg Documented By: Admin: 03/13/22 09:20 Dose: 5 mg Documented By: Admin: 03/12/22 21:04 Dose: 5 mg Documented By: AMANDEEP Piperacillin Sod/Tazobactam (Sod 4.5 gm/ Sodium Chloride) 100 mls @ 200 mls/hr IV NOW ONE Stop: 03/12/22 08:45 Last Infusion: 03/12/22 09:39 Dose: 0 mls/hr Documented By: Admin: 03/12/22 09:06 Dose: 200 mls/hr Documented By: CARLOS Ceftriaxone Sodium 1,000 mg/ (Sodium Chloride) 100 mls @ 200 mls/hr IV Q24H [facility] Last Admin: 03/15/22 11:00 Dose: 200 mls/hr Documented By: Infusion: 03/14/22 11:55 Dose: 200 mls/hr Documented By: Admin: 03/14/22 11:25 Dose: 200 mls/hr Documented By: Infusion: 03/13/22 11:50 Dose: 0 mls/hr Documented By: Admin: 03/13/22 11:19 Dose: 200 mls/hr Documented By: TORRI Insulin Glargine (Insulin Glargine 100 Unit/Ml 3ml Pen) 10 unit SUBCUT BEDTIME [facility] Last Admin: 03/13/22 21:27 Dose: 10 unit Documented By: MAHAD Co-signed By: LEXUS Insulin Glargine (Insulin Glargine 100 Unit/Ml 3ml Pen) 20 unit SUBCUT BEDTIME [facility] Last Admin: 03/14/22 21:41 Dose: 20 unit Documented By: AMANDEEP Co-signed By: BENJY Insulin Human Lispro (Insulin Lispro 100 Unit/Ml 3ml Vial) 0 unit SUBCUT ACHS ANGEL; Protocol Last Admin: 03/15/22 12:47 Dose: 4 unit Documented By: RIVAS Co-signed By: JOSÉ Admin: 03/15/22 09:41 Dose: 2 unit Documented By: RIVAS Co-signed By: JOSÉ Admin: 03/14/22 21:42 Dose: 100 unit Documented By: AMANDEEP Co-signed By: BENJY Admin: 03/14/22 17:22 Dose: 4 unit Documented By: AUSTIN Co-signed By: SHRADDHA Admin: 03/14/22 11:51 Dose: 3 unit Documented By: SHRADDHA Co-signed By: JOSÉ Admin: 03/14/22 08:58 Dose: 4 unit Documented By: SHRADDHA Co-signed By: JOSÉ Admin: 03/13/22 21:27 Dose: 4 unit Documented By: MAHAD Co-signed By: LEXUS Admin: 03/13/22 17:34 Dose: 5 unit Documented By: TORRI Co-signed By: ROBERT Admin: 03/13/22 12:28 Dose: 5 unit Documented By: TORRI Co-signed By: SHRADDHA Admin: 03/13/22 09:20 Dose: 4 unit Documented By: TORRI Co-signed By: JARRELL Admin: 03/12/22 21:06 Dose: 4 unit Documented By: AMANDEEP Co-signed By: CHASE Admin: 03/12/22 16:47 Dose: 5 unit Documented By: AUSTIN Co-signed By: SHRADDHA Isosorbide Mononitrate (Isosorbide Mononitrate Er 30 Mg Tablet) 120 mg PO DAILY [facility] Stop: 03/14/22 12:00 Last Admin: 03/14/22 09:20 Dose: 120 mg Documented By: Admin: 03/13/22 09:18 Dose: 120 mg Documented By: TORRI Isosorbide Mononitrate (Isosorbide Mononitrate Er 30 Mg Tablet) 120 mg PO DAILY@0700 [facility] Last Admin: 03/15/22 10:32 Dose: Not Given Documented By: RIVAS Levothyroxine Sodium (Levothyroxine 150 Mcg Tablet) 150 mcg PO 0600 [facility] Last Admin: 03/15/22 06:34 Dose: 150 mcg Documented By: Admin: 03/14/22 06:11 Dose: 150 mcg Documented By: Admin: 03/13/22 06:00 Dose: 150 mcg Documented By: AMANDEEP Naloxone HCl (Naloxone 0.4 Mg/Ml Vial) 0.2 mg IV Q2MIN PRN PRN Reason: Opiate Reversal Ondansetron HCl (Ondansetron 4 Mg/2 Ml Inj) 4 mg IV Q8HR PRN PRN Reason: Nausea And Vomiting Prednisone (Prednisone 20 Mg Tablet) 40 mg PO DAILY [facility] Last Admin: 03/15/22 09:51 Dose: 40 mg Documented By: Admin: 03/14/22 09:21 Dose: 40 mg Documented By: Admin: 03/13/22 09:20 Dose: 40 mg Documented By: TORRI Tramadol HCl (Tramadol 50 Mg Tablet) 50 mg PO BID [facility] Last Admin: 03/15/22 09:50 Dose: 50 mg Documented By: Admin: 03/14/22 21:52 Dose: Not Given Documented By: Admin: 03/14/22 09:21 Dose: 50 mg Documented By: Admin: 03/13/22 21:25 Dose: 50 mg Documented By: Admin: 03/13/22 09:21 Dose: Not Given Documented By: Admin: 03/12/22 21:02 Dose: 50 mg Documented By: SH Reevaluation(s) Reevaluation #1: Patient has been updated on findings today she is feeling significantly improved she still requiring 2-3 L. She does not normally use home O2. Her is going to go home to picker and sorter load and unload her CPAP and return with it. Time: 09:38 Consultations Consultation #1: Dr. Nielsen, hospitalist accepts for observation. Vital Signs Vital signs: Vital Signs - 8 hr 03/12/22 07:29 03/12/22 07:30 03/12/22 07:31 Temperature Pulse Rate 81 82 82 Respiratory Rate Blood Pressure 165/67 H Pulse Oximetry 96 95 96 03/12/22 07:36 03/12/22 07:42 03/12/22 08:00 Temperature 100.9 F H Pulse Rate 82 80 78 Respiratory Rate 24 16 Blood Pressure 161/66 H Pulse Oximetry 99 90 L 89 L 03/12/22 08:01 03/12/22 08:04 03/12/22 08:30 Temperature 100.9 F H Pulse Rate 75 71 Respiratory Rate Blood Pressure 141/65 H Pulse Oximetry 87 L 94 03/12/22 08:31 03/12/22 09:00 03/12/22 09:01 Temperature Pulse Rate 71 68 71 Respiratory Rate Blood Pressure 137/63 131/60 Pulse Oximetry 95 94 95 03/12/22 09:13 03/12/22 09:30 03/12/22 09:31 Temperature 98.9 F Pulse Rate 65 66 Respiratory Rate Blood Pressure 115/69 Pulse Oximetry 94 94 03/12/22 10:00 03/12/22 10:30 03/12/22 10:31 Temperature Pulse Rate 84 60 60 Respiratory Rate Blood Pressure 108/79 105/50 L Pulse Oximetry 95 97 97 MDM - SOB/Dyspnea Lab Data Result diagrams: 03/15/22 06:24 03/15/22 06:24 Labs: Lab Results 03/12/22 03/12/22 03/12/22 Range/Units 07:30 07:32 07:52 WBC 16.1 H (4.5-11.0) X10^3/uL RBC 4.03 (4.0-5.2) X10^6/uL Hgb 11.8 L (12.0-16.0) g/dL Hct 35.8 L (36-46) % MCV 88.7 (80-100) fL MCH 29.3 (26-34) PG MCHC 33.0 (30-36) % RDW 13.8 (11.6-14.8) % Plt Count 254 (150-400) X10^3/uL Neut % (Auto) 87.2 H (50-75) % Lymph % (Auto) 3.5 L (25-40) % Hardy % (Auto) 8.9 (3-14) % Eos % (Auto) 0.1 L (2-4) % Baso % (Auto) 0.3 (0-2) % Neut # (Auto) 19040 H (5446-8370) /uL Lymph # (Auto) 600 L (5663-2990) /uL Hardy # (Auto) 1400 H (0-900) /uL Eos # (Auto) 0 (0-450) /uL Baso # (Auto) 0 (0-100) /uL PT (10.1-12.7) SECONDS INR (0.9-1.3) APTT (26.4-36.2) SECONDS Sodium (137-145) mmol/L Potassium (3.4-5.1) mmol/L Chloride (98-107) mmol/L Carbon Dioxide (22-32) mmol/L BUN (7-17) mg/dL Creatinine (0.52-1.04) mg/dL Estimated GFR (>60) mL/min BUN/Creatinine Ratio (6-22) Glucose (80-110) mg/dL Lactate (0.7-2.1) mmol/L Calcium (8.4-10.2) mg/dL Total Bilirubin (0.2-1.3) mg/dL AST (14-36) IU/L ALT (<35) IU/L Alkaline Phosphatase (38-126) U/L Total Creatine Kinase (30-135) U/L CK-MB (CK-2) CK-MB (CK-2) Rel Index Troponin I (0.01-0.034) ng/mL NT-Pro-B Natriuret Pep (<450) pg/mL Total Protein (6.3-8.2) g/dL Albumin (3.5-5.0) g/dL Globulin (1.7-4.1) g/dL Albumin/Globulin Ratio (1.0-2.8) Lipase (23-300) U/L Procalcitonin (<0.5) ng/mL TSH (0.47-4.68) uIU/mL Chlamy pneumoniae PCR Not detected (Not Detect) Adenovirus (PCR) Not detected (Not Detect) B. pertussis DNA (PCR) Not detected (Not Detecte) B.parapertussis DNA PCR Not detected (Not Detecte) Coronavirus OC43 (PCR) Not detected (Not Detect) Coronavirus HKU1 (PCR) Not detected (Not Detect) Coronavirus 229E (PCR) Not detected (Not Detect) SARS-CoV-2 (PCR) Not detected Negative (Not Detecte) Coronavirus NL63 (PCR) Not detected (Not Detect) Human Metapneumovir PCR Detected H (Not Detect) Influenza Type A (PCR) Not detected (Not Detect) Influenza Type B (PCR) Not detected (Not Detect) M. pneumoniae (PCR) Not detected (Not Detect) Parainfluenza 1 (PCR) Not detected (Not Detect) Parainfluenza 2 (PCR) Not detected (Not Detect) Parainfluenza 3 (PCR) Not detected (Not Detect) Parainfluenza 4 (PCR) Not detected (Not Detect) RSV (PCR) Not detected (Not Detect) Entero/Rhino (PCR) Not detected (Not Detect) 03/12/22 03/12/22 03/12/22 Range/Units 07:52 07:52 07:52 WBC (4.5-11.0) X10^3/uL RBC (4.0-5.2) X10^6/uL Hgb (12.0-16.0) g/dL Hct (36-46) % MCV (80-100) fL MCH (26-34) PG MCHC (30-36) % RDW (11.6-14.8) % Plt Count (150-400) X10^3/uL Neut % (Auto) (50-75) % Lymph % (Auto) (25-40) % Hardy % (Auto) (3-14) % Eos % (Auto) (2-4) % Baso % (Auto) (0-2) % Neut # (Auto) (2854-0923) /uL Lymph # (Auto) (2458-6076) /uL Hardy # (Auto) (0-900) /uL Eos # (Auto) (0-450) /uL Baso # (Auto) (0-100) /uL PT 46.5 H (10.1-12.7) SECONDS INR 4.0 H (0.9-1.3) APTT 42 H (26.4-36.2) SECONDS Sodium 132 L (137-145) mmol/L Potassium 5.4 H (3.4-5.1) mmol/L Chloride 95 L (98-107) mmol/L Carbon Dioxide 27 (22-32) mmol/L BUN 32 H (7-17) mg/dL Creatinine 1.76 H (0.52-1.04) mg/dL Estimated GFR 28 L (>60) mL/min BUN/Creatinine Ratio 18.2 (6-22) Glucose 239 H (80-110) mg/dL Lactate 1.2 (0.7-2.1) mmol/L Calcium 8.6 (8.4-10.2) mg/dL Total Bilirubin 0.6 (0.2-1.3) mg/dL AST 27 (14-36) IU/L ALT 17 (<35) IU/L Alkaline Phosphatase 97 (38-126) U/L Total Creatine Kinase 62 (30-135) U/L CK-MB (CK-2) TNP CK-MB (CK-2) Rel Index TNP Troponin I 0.019 (0.01-0.034) ng/mL NT-Pro-B Natriuret Pep 2990 H (<450) pg/mL Total Protein 8.0 (6.3-8.2) g/dL Albumin 3.9 (3.5-5.0) g/dL Globulin 4.1 (1.7-4.1) g/dL Albumin/Globulin Ratio 1.0 (1.0-2.8) Lipase 21 L (23-300) U/L Procalcitonin 0.94 H (<0.5) ng/mL TSH (0.47-4.68) uIU/mL Chlamy pneumoniae PCR (Not Detect) Adenovirus (PCR) (Not Detect) B. pertussis DNA (PCR) (Not Detecte) B.parapertussis DNA PCR (Not Detecte) Coronavirus OC43 (PCR) (Not Detect) Coronavirus HKU1 (PCR) (Not Detect) Coronavirus 229E (PCR) (Not Detect) SARS-CoV-2 (PCR) (Not Detecte) Coronavirus NL63 (PCR) (Not Detect) Human Metapneumovir PCR (Not Detect) Influenza Type A (PCR) (Not Detect) Influenza Type B (PCR) (Not Detect) M. pneumoniae (PCR) (Not Detect) Parainfluenza 1 (PCR) (Not Detect) Parainfluenza 2 (PCR) (Not Detect) Parainfluenza 3 (PCR) (Not Detect) Parainfluenza 4 (PCR) (Not Detect) RSV (PCR) (Not Detect) Entero/Rhino (PCR) (Not Detect) 03/12/22 Range/Units 07:52 WBC (4.5-11.0) X10^3/uL RBC (4.0-5.2) X10^6/uL Hgb (12.0-16.0) g/dL Hct (36-46) % MCV (80-100) fL MCH (26-34) PG MCHC (30-36) % RDW (11.6-14.8) % Plt Count (150-400) X10^3/uL Neut % (Auto) (50-75) % Lymph % (Auto) (25-40) % Hardy % (Auto) (3-14) % Eos % (Auto) (2-4) % Baso % (Auto) (0-2) % Neut # (Auto) (0745-9041) /uL Lymph # (Auto) (0127-2734) /uL Hardy # (Auto) (0-900) /uL Eos # (Auto) (0-450) /uL Baso # (Auto) (0-100) /uL PT (10.1-12.7) SECONDS INR (0.9-1.3) APTT (26.4-36.2) SECONDS Sodium (137-145) mmol/L Potassium (3.4-5.1) mmol/L Chloride (98-107) mmol/L Carbon Dioxide (22-32) mmol/L BUN (7-17) mg/dL Creatinine (0.52-1.04) mg/dL Estimated GFR (>60) mL/min BUN/Creatinine Ratio (6-22) Glucose (80-110) mg/dL Lactate (0.7-2.1) mmol/L Calcium (8.4-10.2) mg/dL Total Bilirubin (0.2-1.3) mg/dL AST (14-36) IU/L ALT (<35) IU/L Alkaline Phosphatase (38-126) U/L Total Creatine Kinase (30-135) U/L CK-MB (CK-2) CK-MB (CK-2) Rel Index Troponin I (0.01-0.034) ng/mL NT-Pro-B Natriuret Pep (<450) pg/mL Total Protein (6.3-8.2) g/dL Albumin (3.5-5.0) g/dL Globulin (1.7-4.1) g/dL Albumin/Globulin Ratio (1.0-2.8) Lipase (23-300) U/L Procalcitonin (<0.5) ng/mL TSH 5.53 H (0.47-4.68) uIU/mL Chlamy pneumoniae PCR (Not Detect) Adenovirus (PCR) (Not Detect) B. pertussis DNA (PCR) (Not Detecte) B.parapertussis DNA PCR (Not Detecte) Coronavirus OC43 (PCR) (Not Detect) Coronavirus HKU1 (PCR) (Not Detect) Coronavirus 229E (PCR) (Not Detect) SARS-CoV-2 (PCR) (Not Detecte) Coronavirus NL63 (PCR) (Not Detect) Human Metapneumovir PCR (Not Detect) Influenza Type A (PCR) (Not Detect) Influenza Type B (PCR) (Not Detect) M. pneumoniae (PCR) (Not Detect) Parainfluenza 1 (PCR) (Not Detect) Parainfluenza 2 (PCR) (Not Detect) Parainfluenza 3 (PCR) (Not Detect) Parainfluenza 4 (PCR) (Not Detect) RSV (PCR) (Not Detect) Entero/Rhino (PCR) (Not Detect) Imaging Data Chest x-ray: Radiologist's Impression: Launch?Image [address] [address] XRay Report Signed Patient: Joselyn Anderson MR#: [id number] : 1935 Acct:[id number] Age/Sex: 86 / F Date of Service: 03/12/22 Loc: ED Accession Number: [id number] ?? Procedure: XR chest 1V Ordering Provider: Veronica Gudino D.O. PROCEDURE:? XR CHEST 1V ? INDICATIONS:? SOB, cough, fever. ? TECHNIQUE:? One view of the chest was acquired.? ? COMPARISON:? [facility], , CHEST 1 VIEW, 01/29/2016, 21:19. ? FINDINGS:? ? Surgical changes and devices:? None.? ? Lungs and pleura:? Patchy pulmonary opacities are present within the left lateral mid lung and at the right lung base.? No pleural effusion or pneumothorax. ? Mediastinum:? Mediastinal contours appear normal.? Heart size is normal.? ? Bones and chest wall:? No suspicious bony lesions.? Severe degenerative changes are present at the bilateral glenohumeral joints.? Overlying soft tissues appear unremarkable.? ? IMPRESSION:? Patchy bilateral pulmonary consolidation suspicious for multifocal pneumonia. Short interval follow-up recommended to exclude underlying neoplasm.? ? Dictated by: Karla Waldrop M.D. on 03/12/2022 at 8:43 ? ? Approved by: Karla Waldrop M.D. on 03/12/2022 at 8:44?? ECG Data Attestation: I personally reviewed and interpreted this ECG as follows: Prior ECG tracings: available for review Interpretation: Sinus rhythm rate of 76 WI 170 QRS of 138 [address]TC 479[address] No acute ST elevation appreciated. Patient has prior from 01/29/2016 which also shows AFib, ST segments appears similar except for lateral leads and set of Q-wave patient has more of an RSR. MDM Narrative Medical decision making narrative: This is a 86-year-old female who arrives with complaint of shortness of breath, hypoxia with recent upper respiratory infection for the past 2 weeks. Patient was wheezy initially she improved with a DuoNeb EN route, the Medrol an additional albuterol in the department her breathing has much improved her wheezing improved although she still requiring oxygen via nasal cannula. Patient does not appear to be in as much respiratory distress. She is febrile, chest x-ray showed changes consistent with pneumonia, she has a white count, proceed to procalcitonin but negative lactate, chronic kidney disease which appears stable, negative troponin and elevated BNP although less likely to be exacerbating her symptoms. Patient does have blood cultures obtained. She has had a productive cough recently attempting to obtain sputum culture. Patient was covered with antibiotics. Discussed with hospitalist for admission versus observation for COPD exacerbation/pneumonia with acute respiratory failure with hypoxia she is newly requiring oxygen. She had a negative COVID swab and respiratory panel was obtained and is positive for metapneumovirus only. Discharge Plan Departure Patient Disposition: Admitted as Observation Clinical Impression: Pneumonia, Acute exacerbation of chronic obstructive pulmonary disease (COPD), Acute respiratory failure with hypoxia, Human metapneumovirus pneumonia Admit Date/Time: 03/13/22 01:00 Admit Provider: Fidel Nielsen
[2022-03-12 07:51] LABS: COVID19 -Nasal RAPID Negative (Negative)
--- NOTE | 2022-03-12 07:52 | PC.NURSE ---
Pt arrived EMS with report of sats in 70's at home and 3 word dyspnea. Pt has been battling a cold for about 2 weeks prior to this visit. arrived on NRB at 15L and was given 125mg solumedrol and duoneb in field. On arrival pt AAOx3, able to speak in short sentences, weaned to O2 via NC at 3L. Has thick/tenacious sputum and having to spit into emesis bag. Swabbed for COVID yesterday at home which was negative and retested at todays visit. fever of 101.5 temporal in ambulance and 100.9 in ED. pt with 2 PIVs--R hand placed by EMS. Pt does appear to have a non working dialysis fistula in [place]. L forearm IV placed and lab in ED to draw cultures. Sitting upright in bed. Needs met at this time.
[2022-03-12] MEDS: ACETAMINOPHEN 325 MG TABLET 975 MG PO (08:04)
[2022-03-12 08:08] LABS: Prothrombin Time 46.5 SECONDS (10.1-12.7)
[2022-03-12 08:09] LABS: Add Manual Diff / Slide Review NO; Basophils Absolute Auto 0 /uL (0-100); Basophils Percent Auto 0.3 % (0-2); Eosinophils Absolute Auto 0 /uL (0-450); Eosinophils Percent Auto 0.1 % (2-4); Hematocrit 35.8 % (36-46); Hemoglobin 11.8 g/dL (12.0-16.0); Lymphocytes Absolute Auto 600 /uL (1100-4500); Lymphocytes Percent Auto 3.5 % (25-40); Mean Corpuscular Hemoglobin 29.3 PG (26-34); Mean Corpuscular Volume 88.7 fL (80-100); Monocytes Absolute Auto 1400 /uL (0-900); Monocytes Percent Auto 8.9 % (3-14); Neutrophils Absolute Auto 14000 /uL (1500-7000); Neutrophils Percent Auto 87.2 % (50-75); Platelet Count 254 X10^3/uL (150-400); Red Blood Cell Count 4.03 X10^6/uL (4.0-5.2); Red Cell Distribution Width 13.8 % (11.6-14.8); White Blood Cell Count 16.1 X10^3/uL (4.5-11.0)
[2022-03-12 08:11] LABS: PTT Partial Thromboplastin Tim 42 SECONDS (26.4-36.2)
[2022-03-12 08:13] LABS: Alanine Aminotransferase 17 IU/L (<35); Albumin 3.9 g/dL (3.5-5.0); Alkaline Phosphatase 97 U/L (38-126); Aspartate Aminotransferase 27 IU/L (14-36); BUN Creatinine Ratio 18.2 (6-22); Bilirubin Total 0.6 mg/dL (0.2-1.3); Blood Urea Nitrogen 32 mg/dL (7-17); Calcium 8.6 mg/dL (8.4-10.2); Carbon Dioxide 27 mmol/L (22-32); Chloride 95 mmol/L (98-107); Creatine Kinase 62 U/L (30-135); Estimated Glomerular Filt Rate 28 mL/min (>60); Globulin 4.1 g/dL (1.7-4.1); Glucose 239 mg/dL (80-110); HEMOLYSIS < 15 (0-50); Lipase 21 U/L (23-300); Sodium 132 mmol/L (137-145)
[2022-03-12 08:14] LABS: Lactate (Lactic Acid) 1.2 mmol/L (0.7-2.1); Potassium 5.4 mmol/L (3.4-5.1)
[2022-03-12 08:24] LABS: NT-proBNP (BNP-Adult 18+) 2990 pg/mL (<450); Troponin I 0.019 ng/mL (0.01-0.034)
[2022-03-12 08:29] LABS: Procalcitonin 0.94 ng/mL (<0.5)
[2022-03-12] MEDS: PIPERACILLIN/TAZO 4.5 GM in SODIUM CHLORIDE 0.9% 100 ML IV (09:06)
[2022-03-12 09:13] LABS: Adenovirus Not Detected (Not Detect); B. parapertussis Not Detected (Not Detecte); Bordetella pertussis Not Detected (Not Detecte); Chlamydophila pneumoniae Not Detected (Not Detect); Coronavirus 229E Not Detected (Not Detect); Coronavirus HKU1 Not Detected (Not Detect); Coronavirus NL 63 Not Detected (Not Detect); Coronavirus OC43 Not Detected (Not Detect); Human Metapneumovirus Detected (Not Detect); Human Rhinovirus/Enterovirus Not Detected (Not Detect); Influenza A Not Detected (Not Detect); Influenza B Not Detected (Not Detect); Mycoplasma pneumoniae Not Detected (Not Detect); Parainfluenza Virus 1 Not Detected (Not Detect); Parainfluenza Virus 2 Not Detected (Not Detect); Parainfluenza Virus 3 Not Detected (Not Detect); Parainfluenza Virus 4 Not Detected (Not Detect); Respiratory Syncytial Virus Not Detected (Not Detect); SARS- CoV-2 Not Detected (Not Detecte)
[2022-03-12 10:18] LABS: Thyroid Stimulating Hormone 5.53 uIU/mL (0.47-4.68)
--- NOTE | 2022-03-12 15:11 | PM.HP.1 ---
History of Present Illness History of Present Illness Date Patient Seen: 03/12/22 Time Patient Seen: 14:50 Chief complaint: COPD exacerbation Narrative: This is an 86-year-old female with a past medical history of pernicious anemia, COPD, prior CVA, depression, type 2 diabetes no longer on medications, CAD with a history of [place] and acute heart failure leading to acute renal failure and need for prolonged dialysis which has now improved, aortic stenosis, CLAIRE, and hypothyroidism who presented to the emergency room for shortness of breath. She had an oxygen saturation in the 70s with EMS and was transported here for further evaluation. Her symptoms started approximately 4 days ago with initially chest congestion which then progressed to nasal congestion. She tried [id number] nasal sprays with some improvement but then this morning she had worsening cough and severe shortness of breath leading her to call EMS. She can normally walk a mile at home unassisted, but is currently short of breath at rest. She does have some sputum production but it is fairly minimal, and she continues to have a cough. She denies any fevers, chills, known sick contacts but she does live in assisted living facility with 35 other apartments she says. She denies any weight gain, lower extremity edema, chest pain, abdominal pain, nausea, or vomiting. She was given methylprednisolone by EMS, and was noted to be hypoxic on room air in the emergency room to less than 90%. She is currently at 94% on 4 L after steroids and breathing treatments in the emergency room. She was also given antibiotics. Initial laboratory evaluation was notable for mild leukocytosis with WBC of 16.1, hemoglobin of 11.8, with a normal platelet count. INR was elevated at 4.0. Chemistries revealed an elevated creatinine but this is at her baseline per patient report, and borderline sodium and potassium levels but nothing overtly abnormal. ProBNP was elevated at 2990, troponin was within normal limits at 0.019. Procalcitonin was elevated at 0.94, and TSH was 5.53. Respiratory panel was positive for human metapneumovirus, negative for COVID-19. Chest x-ray showed bilateral patchy infiltrates consistent with a multifocal pneumonia. Patient was admitted for further treatment of her acute respiratory failure with hypoxia likely secondary to COPD exacerbation from human metapneumovirus pneumonia. Patient History Medical History Anemia Asthma COPD (chronic obstructive pulmonary disease) Coronary artery disease CVA (cerebral vascular accident) Depression Diabetes Distal radius fracture, left Distal radius fracture, right DJD (degenerative joint disease) Fibromyalgia History of renal dialysis Hyperlipidemia Hypertension Myocardial infarction Sleep apnea Spinal stenosis Thyroid disease Valvular heart disease Surgical History History of knee replacement History of phacoemulsification of cataract of right eye with intraocular lens implantation (12/02/17) Hx of CABG Hx of cholecystectomy Hx of tonsillectomy Family & Social History Family History (Updated 03/12/22 @ 15:12 by Fidel Nielsen DO) Mother Cancer Father Congestive heart failure Social History: household members spouse Safety & Behavioral: Feels Safe in Current Yes Environment Been Physically Hurt or No Threatened By a Person Tobacco & Substance use: Smoking Status Never smoker alcohol intake current alcohol intake frequency holiday/special occasion Substance Use Type does not use Meds Home Medications and Allergies Home Medications Medication Instructions Recorded Confirmed Type carvedilol 6.25 mg tablet (Coreg) 6.25 mg PO BID #0 01/23/17 03/12/22 History warfarin 5 mg tablet (Coumadin) 5 mg PO QDAY #0 01/23/17 03/12/22 History amlodipine 5 mg tablet 5 mg PO BID 03/03/18 03/12/22 History hydrocodone 5 mg-acetaminophen 325 1 tab PO Q4-6H PRN #10 tab 09/09/18 03/12/22 Rx mg tablet ([place]) amitriptyline 25 mg tablet 25 mg PO BEDTIME 08/28/20 03/12/22 History clopidogrel 75 mg tablet 75 mg PO DAILY 08/28/20 03/12/22 History duloxetine 60 mg capsule,delayed 60 mg PO DAILY 08/28/20 03/12/22 History release fluticasone 250 mcg-salmeterol 50 1 ea INHALATION BID 08/28/20 03/12/22 History mcg/dose blistr powdr for inhalation (Advair Diskus) hydrocodone 5 mg-acetaminophen 325 2 tab PO Q4-6H PRN #30 tab 08/28/20 03/12/22 Rx mg tablet ([place]) isosorbide mononitrate 120 mg 120 mg PO DAILY 08/28/20 03/12/22 History tablet,extended release 24 hr levothyroxine 150 mcg tablet 150 mcg PO DAILY 08/28/20 03/12/22 History (Synthroid) rosuvastatin 40 mg tablet 40 mg PO DAILY 08/28/20 03/12/22 History tramadol 50 mg tablet 50 mg PO BID 08/28/20 03/12/22 History albuterol 90 mcg/actuation aerosol 90 mcg INHALATION 4-6XD PRN 03/12/22 03/12/22 History inhaler diclofenac sodium 1 % topical gel 0.01 g TOPICAL DIRECTED PRN 03/12/22 03/12/22 History fluticasone 250 mcg-salmeterol 50 1 inh INHALATION BID 03/12/22 03/12/22 History mcg/dose blistr powdr for inhalation (Advair Diskus) folic acid 1 mg tablet 1 mg PO DAILY 03/12/22 03/12/22 History furosemide 40 mg tablet 40 mg PO DAILY 03/12/22 03/12/22 History hydrocortisone 5 mg tablet 5 mg PO BID 03/12/22 03/12/22 History potassium 20 mg chewable tablet 40 mg PO DAILY 03/12/22 03/12/22 History Allergies Allergy/AdvReac Type Severity Reaction Status Date / Time shellfish derived Allergy Severe anaphalxis Verified 08/28/20 11:07 [SHELLFISH DERIVED] lisinopril Allergy Mild COUGH Verified 08/28/20 11:07 lovastatin Allergy Mild MOUTH Verified 08/28/20 11:07 BROKE OUT IN SORES niacin Allergy Mild RED AND Verified 08/28/20 11:07 ITCHY ALL OVER Sulfa (Sulfonamide Allergy Mild CHILDHOOD Verified 08/28/20 11:07 Antibiotics) REACTION azathioprine Allergy Unknown Verified 08/28/20 11:07 leflunomide AdvReac Unknown Verified 08/28/20 11:07 Review of Systems Review of Systems Narrative: All other systems reviewed with the patient and are negative unless otherwise stated. Exam Vital Signs (past 8 hours): - 03/12/22 07:29 03/12/22 07:30 03/12/22 07:31 Temperature Pulse Rate 81 82 82 Respiratory Rate Blood Pressure 165/67 H Pulse Oximetry 96 95 96 03/12/22 07:36 03/12/22 07:42 03/12/22 08:00 Temperature 100.9 F H Pulse Rate 82 80 78 Respiratory Rate 24 16 Blood Pressure 161/66 H Pulse Oximetry 99 90 L 89 L 03/12/22 08:01 03/12/22 08:04 03/12/22 08:30 Temperature 100.9 F H Pulse Rate 75 71 Respiratory Rate Blood Pressure 141/65 H Pulse Oximetry 87 L 94 03/12/22 08:31 03/12/22 09:00 03/12/22 09:01 Temperature Pulse Rate 71 68 71 Respiratory Rate Blood Pressure 137/63 131/60 Pulse Oximetry 95 94 95 03/12/22 09:13 03/12/22 09:30 03/12/22 09:31 Temperature 98.9 F Pulse Rate 65 66 Respiratory Rate Blood Pressure 115/69 Pulse Oximetry 94 94 03/12/22 10:00 03/12/22 10:30 03/12/22 10:31 Temperature Pulse Rate 84 60 60 Respiratory Rate Blood Pressure 108/79 105/50 L Pulse Oximetry 95 97 97 03/12/22 11:00 03/12/22 11:30 03/12/22 12:00 Temperature Pulse Rate 59 L 58 L 55 L Respiratory Rate Blood Pressure 109/52 L 123/56 L Pulse Oximetry 95 94 95 03/12/22 12:01 03/12/22 12:40 Temperature 96.9 F L Pulse Rate 55 L 65 Respiratory Rate 20 Blood Pressure 108/50 L 110/47 L Pulse Oximetry 95 93 Fraction of Inspired Oxygen 100 Oxygen Delivery Method Nasal Cannula Oxygen Flow Rate 3 Narrative Exam Narrative: General:? Elderly female, mildly ill, dyspneic with prolonged sentences HEENT:? Normocephalic, atraumatic, extraocular muscles intact, oral pharynx is clear and mucous membranes are moist. Neck: supple and symmetric, trachea is midline, no cervical adenopathy. Negative for JVD Chest:? Normal AP diameter and contour without kyphoscoliosis, no tachypnea, equal chest rise bilaterally. Lungs:? CTA b/l no wheezing rhonchi or rales. Poor respiratory effort, with shallow respirations Cardio:?RRR no m/r/g. Abdomen: S NT ND. + diastasis recti Musculoskeletal:? Muscle strength and tone are equal within normal limits, no deformity. Extremities: No edema or joint effusions. No cyanosis or clubbing. Skin:? Pale,? Warm to touch,dry and intact without rashes, ulcerations or petechiae.? Neuro:? Alert and orientated x3,? sensation to touch intact in all extremities, no gross deficits noted of cranial nerves. Psych:? Patient has a well-kept appearance, appropriate affect, mental status attitude thought context and judgment are appropriate for age. Objective ECG Impression: Normal sinus rhythm, there is significant artifact, there is a chronic left bundle branch block which appears grossly unchanged compared to prior studies which were noted to be 8 years ago. There is no evidence of acute ischemia on this tracing. This was interpreted by me. Labs Result Diagrams: 03/12/22 07:52 03/12/22 07:52 Labs: Laboratory Results - last 24 hr 03/12/22 03/12/22 03/12/22 07:30 07:32 07:52 WBC 16.1 H RBC 4.03 Hgb 11.8 L Hct 35.8 L MCV 88.7 MCH 29.3 MCHC 33.0 RDW 13.8 Plt Count 254 Neut % (Auto) 87.2 H Lymph % (Auto) 3.5 L [place] % (Auto) 8.9 Eos % (Auto) 0.1 L Baso % (Auto) 0.3 Neut # (Auto) 61923 H Lymph # (Auto) 600 L [place] # (Auto) 1400 H Eos # (Auto) 0 Baso # (Auto) 0 PT INR APTT Sodium Potassium Chloride Carbon Dioxide BUN Creatinine Estimated GFR BUN/Creatinine Ratio Glucose Lactate Calcium Total Bilirubin AST ALT Alkaline Phosphatase Total Creatine Kinase CK-MB (CK-2) CK-MB (CK-2) Rel Index Troponin I NT-Pro-B Natriuret Pep Total Protein Albumin Globulin Albumin/Globulin Ratio Lipase Procalcitonin TSH Chlamy pneumoniae PCR Not detected Adenovirus (PCR) Not detected B. pertussis DNA (PCR) Not detected B.parapertussis DNA PCR Not detected Coronavirus OC43 (PCR) Not detected Coronavirus HKU1 (PCR) Not detected Coronavirus 229E (PCR) Not detected SARS-CoV-2 (PCR) Not detected Negative Coronavirus NL63 (PCR) Not detected Human Metapneumovir PCR Detected H Influenza Type A (PCR) Not detected Influenza Type B (PCR) Not detected M. pneumoniae (PCR) Not detected Parainfluenza 1 (PCR) Not detected Parainfluenza 2 (PCR) Not detected Parainfluenza 3 (PCR) Not detected Parainfluenza 4 (PCR) Not detected RSV (PCR) Not detected Entero/Rhino (PCR) Not detected 03/12/22 03/12/22 03/12/22 07:52 07:52 07:52 WBC RBC Hgb Hct MCV MCH MCHC RDW Plt Count Neut % (Auto) Lymph % (Auto) [place] % (Auto) Eos % (Auto) Baso % (Auto) Neut # (Auto) Lymph # (Auto) [place] # (Auto) Eos # (Auto) Baso # (Auto) PT 46.5 H INR 4.0 H APTT 42 H Sodium 132 L Potassium 5.4 H Chloride 95 L Carbon Dioxide 27 BUN 32 H Creatinine 1.76 H Estimated GFR 28 L BUN/Creatinine Ratio 18.2 Glucose 239 H Lactate 1.2 Calcium 8.6 Total Bilirubin 0.6 AST 27 ALT 17 Alkaline Phosphatase 97 Total Creatine Kinase 62 CK-MB (CK-2) TNP CK-MB (CK-2) Rel Index TNP Troponin I 0.019 NT-Pro-B Natriuret Pep 2990 H Total Protein 8.0 Albumin 3.9 Globulin 4.1 Albumin/Globulin Ratio 1.0 Lipase 21 L Procalcitonin 0.94 H TSH Chlamy pneumoniae PCR Adenovirus (PCR) B. pertussis DNA (PCR) B.parapertussis DNA PCR Coronavirus OC43 (PCR) Coronavirus HKU1 (PCR) Coronavirus 229E (PCR) SARS-CoV-2 (PCR) Coronavirus NL63 (PCR) Human Metapneumovir PCR Influenza Type A (PCR) Influenza Type B (PCR) M. pneumoniae (PCR) Parainfluenza 1 (PCR) Parainfluenza 2 (PCR) Parainfluenza 3 (PCR) Parainfluenza 4 (PCR) RSV (PCR) Entero/Rhino (PCR) 03/12/22 07:52 WBC RBC Hgb Hct MCV MCH MCHC RDW Plt Count Neut % (Auto) Lymph % (Auto) [place] % (Auto) Eos % (Auto) Baso % (Auto) Neut # (Auto) Lymph # (Auto) [place] # (Auto) Eos # (Auto) Baso # (Auto) PT INR APTT Sodium Potassium Chloride Carbon Dioxide BUN Creatinine Estimated GFR BUN/Creatinine Ratio Glucose Lactate Calcium Total Bilirubin AST ALT Alkaline Phosphatase Total Creatine Kinase CK-MB (CK-2) CK-MB (CK-2) Rel Index Troponin I NT-Pro-B Natriuret Pep Total Protein Albumin Globulin Albumin/Globulin Ratio Lipase Procalcitonin TSH 5.53 H Chlamy pneumoniae PCR Adenovirus (PCR) B. pertussis DNA (PCR) B.parapertussis DNA PCR Coronavirus OC43 (PCR) Coronavirus HKU1 (PCR) Coronavirus 229E (PCR) SARS-CoV-2 (PCR) Coronavirus NL63 (PCR) Human Metapneumovir PCR Influenza Type A (PCR) Influenza Type B (PCR) M. pneumoniae (PCR) Parainfluenza 1 (PCR) Parainfluenza 2 (PCR) Parainfluenza 3 (PCR) Parainfluenza 4 (PCR) RSV (PCR) Entero/Rhino (PCR) Assessment & Plan Assessment & Plan narrative: 1. Acute respiratory failure with hypoxia secondary to COPD exacerbation secondary to viral pneumonia with human metapneumo virus with possible super imposed bacterial pneumonia -patient presents with 4 days of respiratory symptoms progressive to now shortness of breath. Her chest x-ray shows a multifocal pneumonia. Given elevated procalcitonin this may represent a bacterial superinfection and will continue antibiotics for now. -continue ceftriaxone and azithromycin for possible bacterial pneumonia -continue prednisone -contninue home COPD medications replaced for formulary alternatives. -RT eval and treat. 2. CAD, chronic - continue home plavix 3. Chronic heart failure, unknown type - no indication for TTE at this time, will try to see if there are records to determine her EF. Can continue home diuretic. 4. Paroxysmal atrial fibrillation on anticoagulation with Coumadin - hold coudadin for now, INR 4.0. Continue to monitor and re-dose when INR 2-3. 5. CKD stage 3 - continue to monitor and renally dosed medications were appropriate 6. Type 2 diabetes -patient with an elevated glucoses have 253 on admission, she does not take medications at home currently. This is likely in the setting of steroids which is given by EMS. -will treat with sliding scale insulin for now depending on her trend consider nightly Lantus. Code: DNR, surrogate decision maker is the patient's Dispo: Patient is admitted under observation status, though given elevated PSI score consider inpatient. I have utilized all available immediate resources to obtain, update, or review the patient's current medications. COVID-19 COVID-19 status: Negative Result date/Date tested (Pos, Neg/Pending): 03/12/22 Time Spent With Patient Critical Care time: I spent a total of [] minutes of critical care time on this patient's care today; this time is exclusive of procedural time. Quality VTE Deep Vein Thrombosis/Pulmonary Embolism Present on Admission: No MIPS - Admit I confirm the patient?s Advance Care Plan is present, Code status is documented, Surrogate decision maker is in patient?s record [If Yes, STOP here]: Yes
[2022-03-12] MEDS: INSULIN LISPRO 100 UNIT/ML 3ML VIAL SUBCUT ×2 (16:47→21:06)
--- NOTE | 2022-03-12 18:13 | PC.NURSE ---
Pt arrived from ED at 1215 this afternoon and placed on droplet precautions. She is A&Ox3, afebrile on 3-4 L NC. She is diaphoretic and has SOB with exertion. Her linens and clothing are changed drenched from having broke a fever. She is able to eat a heart healthy tray this afternoon but shortly before dinner her BG is 414. MD notified of BG and changed pt's diet to Carb controlled and per orders administered 5 units of lispro insulin. Nebulizer treatment given per RT and per pt her will be bringing in her CPAP machine this evening. RT notified to educate patient and to assist with CPAP set up. Pt denies pain. Continuous monitoring and Normal sinus rhythm on telemetry. Bed alarm on and call light withing reach, she continues to deny pain or distress.
[2022-03-12] MEDS: BUDESONIDE 0.5 MG/2 ML NEB INH (19:16)
[2022-03-12] MEDS: AMLODIPINE 5 MG TABLET PO (21:01)
[2022-03-12] MEDS: carvediloL 3.125 MG TABLET 6.25 MG PO (21:01)
[2022-03-12] MEDS: DOXYCYCLINE HYCLATE 100 MG TABLET PO (21:01)
[2022-03-12] MEDS: AMITRIPTYLINE 25 MG TABLET PO (21:01)
[2022-03-12] MEDS: TRAMADOL 50 MG TABLET PO (21:02)
[2022-03-12] MEDS: HYDROCORTISONE 10 MG TABLET 5 MG PO (21:04)
--- NOTE | 2022-03-12 22:31 | PC.NURSE ---
Blood sugar 386, CASH PROCESSOR Hardy notified, no new orders. 4 units Humalog given per sliding scale.
[2022-03-13] VITALS (10 sets, daily range): BP systolic 148–174; BP diastolic 53–83; PULSE 70–82; RESP 18–20; TEMP 36.1–36.7; O2SAT 88–98
[2022-03-13 05:38] LABS: Prothrombin Time 69.3 SECONDS (10.1-12.7)
[2022-03-13 05:43] LABS: Add Manual Diff / Slide Review NO; Basophils Absolute Auto 100 /uL (0-100); Basophils Percent Auto 0.3 % (0-2); Eosinophils Absolute Auto 0 /uL (0-450); Eosinophils Percent Auto 0.1 % (2-4); Hematocrit 33.8 % (36-46); Hemoglobin 11.5 g/dL (12.0-16.0); Lymphocytes Absolute Auto 600 /uL (1100-4500); Lymphocytes Percent Auto 3.6 % (25-40); Mean Corpuscular HGB Conc 33.9 % (30-36); Mean Corpuscular Hemoglobin 29.7 PG (26-34); Mean Corpuscular Volume 87.7 fL (80-100); Monocytes Absolute Auto 500 /uL (0-900); Monocytes Percent Auto 3.3 % (3-14); Neutrophils Absolute Auto 15100 /uL (1500-7000); Neutrophils Percent Auto 92.7 % (50-75); Platelet Count 262 X10^3/uL (150-400); Red Blood Cell Count 3.85 X10^6/uL (4.0-5.2); Red Cell Distribution Width 13.7 % (11.6-14.8); White Blood Cell Count 16.3 X10^3/uL (4.5-11.0)
[2022-03-13 05:58] LABS: BUN Creatinine Ratio 29.7 (6-22); Blood Urea Nitrogen 47 mg/dL (7-17); Calcium 8.4 mg/dL (8.4-10.2); Carbon Dioxide 27 mmol/L (22-32); Chloride 96 mmol/L (98-107); Estimated Glomerular Filt Rate 32 mL/min (>60); Glucose 356 mg/dL (80-110); HEMOLYSIS < 15 (0-50); Magnesium 2.3 mg/dL (1.6-2.3); Potassium 4.4 mmol/L (3.4-5.1); Sodium 133 mmol/L (137-145)
[2022-03-13] MEDS: LEVOTHYROXINE 150 MCG TABLET PO (06:00)
[2022-03-13] MEDS: ISOSORBIDE MONONITRATE ER 30 MG TABLET 120 MG PO (09:18)
[2022-03-13] MEDS: carvediloL 3.125 MG TABLET 6.25 MG PO ×2 (09:19→21:25)
[2022-03-13] MEDS: CLOPIDOGREL 75 MG TABLET PO (09:20)
[2022-03-13] MEDS: AMLODIPINE 5 MG TABLET PO ×2 (09:20→21:24)
[2022-03-13] MEDS: DOXYCYCLINE HYCLATE 100 MG TABLET PO ×2 (09:20→21:25)
[2022-03-13] MEDS: predniSONE 20 MG TABLET 40 MG PO (09:20)
[2022-03-13] MEDS: INSULIN LISPRO 100 UNIT/ML 3ML VIAL SUBCUT ×4 (09:20→21:27)
[2022-03-13] MEDS: FUROSEMIDE 40 MG TABLET PO (09:20)
[2022-03-13] MEDS: DULOXETINE 30 MG CAPSULE 60 MG PO (09:20)
[2022-03-13] MEDS: HYDROCORTISONE 10 MG TABLET 5 MG PO ×2 (09:20→21:25)
[2022-03-13] MEDS: BUDESONIDE 0.5 MG/2 ML NEB INH ×2 (09:39→19:24)
[2022-03-13] MEDS: ALBUTEROL 2.5 MG/3 ML NEB (ADULT) INH ×3 (09:40→19:23)
[2022-03-13] MEDS: cefTRIAXone 1,000 MG in SODIUM CHLORIDE 0.9% 100 ML 200 MG IV (11:19)
--- NOTE | 2022-03-13 16:10 | CM.DANOTE ---
Initial DCP Assessment Note Pt is an 86 yo female, resident of [place], arrives w/ SOB, COPD exacerbation and found to be in acute resp failure with hypoxia sec to COPD exacerbation sec to viral pneumonia with human metapneumo virus with possible super imposed bacterial pneumonia PCP: Elsa Macario Payer: [facility]/[employer] Reviewed chart, patient currently on droplet precautions and not feeling well; attempted contact w/spouse Elvis today, left msg introducing role and requested CB to complete initial assessment of DC needs Will plan to follow closely as medical POC unfolds. Therapies will be helpful once medically appropriate DARRIN Grimes Discharge Planning/Care Management CM Discharge Assessment Start: 03/13/22 15:59 Freq: Status: Active Protocol: Document 03/13/22 15:59 CIRO (Rec: 03/13/22 16:09 CIRO [id number]) Discharge Planning Assessment Assigned Health Records Technology Teacher DARRIN Calderon DPOA/Assigned Designee Name Elvis Anderson, spouse Contact Information home [phone] cell Advance Directives? Yes Advance Directives on File No History Provided By Medical Record Household Members spouse Independent with ADL's Unknown at this time, suspect poor activity tolerance Is patient alert and oriented? Yes Needs Assistance With Meal Prep,Home Chores / Shopping Barriers to Discharge Yes Comment Patient appears to be quite ill, with multiple co- morbidities at baseline to include: COPD, prior CVA, depression, type 2 diabetes no longer on medications, CAD with a history of [place] and acute heart failure leading to acute renal failure and need for prolonged dialysis which has now improved, aortic stenosis, CLAIRE, and hypothyroidism. Patient is 5'5 220lbs Patient may benefit from SNF stay vs home w/spouse/family and HH
--- NOTE | 2022-03-13 16:25 | P.PN_ITS ---
Subjective Subjective Date Patient Seen: 03/13/22 Interval history: Continues to have significant cough today and still short of breath, though her breathing is now somewhat improved. No fever or chills. Still requiring supplemental oxygen this morning. She feels slightly off, typical she states of when she is on prednisone. Exam Vital Signs (past 8 hours): - 03/13/22 09:19 03/13/22 09:41 03/13/22 09:20 Temperature Pulse Rate 72 78 Respiratory Rate 20 Blood Pressure 174/74 H Pulse Oximetry 98 Oxygen Delivery Method Nasal Cannula Nasal Cannula Oxygen Flow Rate 4 03/13/22 12:01 03/13/22 14:30 03/13/22 15:58 Temperature 97.8 F Pulse Rate 70 72 Respiratory Rate 20 20 Blood Pressure 154/56 H Pulse Oximetry 94 98 Oxygen Delivery Method Nasal Cannula Nasal Cannula Oxygen Flow Rate 3 3 Fraction of Inspired Oxygen 100 Oxygen Delivery Method Nasal Cannula Oxygen Flow Rate 3 Narrative Exam Narrative: General:? Elderly female, mildly ill, dyspneic with prolonged sentences HEENT:? Normocephalic, atraumatic, extraocular muscles intact, oral pharynx is clear and mucous membranes are moist. Neck: supple and symmetric, trachea is midline, no cervical adenopathy. Negative for JVD Chest:? Normal AP diameter and contour without kyphoscoliosis, no tachypnea, equal chest rise bilaterally. Lungs:? CTA b/l no wheezing rhonchi or rales. Poor respiratory effort, with shallow respirations Cardio:?RRR no m/r/g. Abdomen: S NT ND. Musculoskeletal:? Muscle strength and tone are equal within normal limits, no deformity. Extremities: No edema or joint effusions. No cyanosis or clubbing. Skin:? Pale,? Warm to touch,dry and intact without rashes, ulcerations or petechiae.? Neuro:? Alert and orientated x3,? sensation to touch intact in all extremities, no gross deficits noted of cranial nerves. Psych:? Patient has a well-kept appearance, appropriate affect, mental status attitude thought context and judgment are appropriate for age. Speech is somewhat rapid and pressured. Objective Labs Result Diagrams: 03/13/22 05:00 03/13/22 05:00 Labs: Laboratory Results - last 24 hr 03/13/22 03/13/22 03/13/22 05:00 05:00 05:00 WBC 16.3 H RBC 3.85 L Hgb 11.5 L Hct 33.8 L MCV 87.7 MCH 29.7 MCHC 33.9 RDW 13.7 Plt Count 262 Neut % (Auto) 92.7 H Lymph % (Auto) 3.6 L [place] % (Auto) 3.3 Eos % (Auto) 0.1 L Baso % (Auto) 0.3 Neut # (Auto) 23140 H Lymph # (Auto) 600 L [place] # (Auto) 500 Eos # (Auto) 0 Baso # (Auto) 100 PT 69.3 H D INR 6.0 H* Sodium 133 L Potassium 4.4 Chloride 96 L Carbon Dioxide 27 BUN 47 H Creatinine 1.58 H Estimated GFR 32 L BUN/Creatinine Ratio 29.7 H Glucose 356 H D Calcium 8.4 Magnesium 2.3 PFSH Medical History Anemia Asthma COPD (chronic obstructive pulmonary disease) Coronary artery disease CVA (cerebral vascular accident) Depression Diabetes Distal radius fracture, left Distal radius fracture, right DJD (degenerative joint disease) Fibromyalgia History of renal dialysis Hyperlipidemia Hypertension Myocardial infarction Sleep apnea Spinal stenosis Thyroid disease Valvular heart disease Surgical History History of knee replacement History of phacoemulsification of cataract of right eye with intraocular lens implantation (12/02/17) Hx of CABG Hx of cholecystectomy Hx of tonsillectomy Family History (Updated 03/12/22 @ 15:12 by Fidel Nielsen DO) Mother Cancer Father Congestive heart failure Social History household members: spouse Smoking Status: Never smoker alcohol intake: current Assessment & Plan Assessment & Plan narrative: 1. Acute respiratory failure with hypoxia secondary to COPD exacerbation secondary to viral pneumonia with human metapneumo virus with possible super imposed bacterial pneumonia -patient presents with 4 days of respiratory symptoms progressive to now shortne ss of breath. Her chest x-ray shows a multifocal pneumonia. Given elevated procalcitonin this may represent a bacterial superinfection and will continue antibiotics for now. -continue ceftriaxone and doxycycline for possible bacterial pneumonia -continue prednisone -contninue home COPD medications replaced for formulary alternatives. -appreciate RT assistance in therapy. 2. CAD, chronic - continue home plavix 3. Chronic heart failure, unknown type - no indication for TTE at this time, will try to see if there are records to determine her EF. Can continue home diuretic. 4. Paroxysmal atrial fibrillation on anticoagulation with Coumadin - hold coudadin for now, INR up to 6 today from 4 yesterday. Continue to monitor and re-dose when INR 2-3. 5. CKD stage 3 - continue to monitor and renally dosed medications were appropriate 6. Type 2 diabetes -patient with an elevated glucoses have 253 on admission, she does not take medications at home currently. This is likely in the setting of steroids which is given by EMS. -glucose rising today, will start lantus 10 U tonight and continue sliding scale. Will likely need further adjustments. Code: DNR, surrogate decision maker is the patient's Dispo: anticipate discharge home once off supplemental oxygen, hopefully in 1-3 days. COVID-19 COVID-19 status: Negative Result date/Date tested (Pos, Neg/Pending): 03/12/22 Time Spent With Patient Critical Care time: I spent a total of [] minutes of critical care time on this patient's care today; this time is exclusive of procedural time. Quality VTE Deep Vein Thrombosis/Pulmonary Embolism Present on Admission: No
[2022-03-13] MEDS: AMITRIPTYLINE 25 MG TABLET PO (21:24)
[2022-03-13] MEDS: TRAMADOL 50 MG TABLET PO (21:25)
[2022-03-13] MEDS: INSULIN GLARGINE 100 UNIT/ML 3ML PEN 10 UNIT SUBCUT (21:27)
[2022-03-14] VITALS (10 sets, daily range): BP systolic 141–155; BP diastolic 52–65; PULSE 60–82; RESP 16–22; TEMP 36.1–36.7; O2SAT 90–96
[2022-03-14 05:42] LABS: Add Manual Diff / Slide Review NO; Basophils Absolute Auto 0 /uL (0-100); Basophils Percent Auto 0.1 % (0-2); Eosinophils Absolute Auto 0 /uL (0-450); Hematocrit 33.2 % (36-46); Lymphocytes Absolute Auto 900 /uL (1100-4500); Mean Corpuscular HGB Conc 33.1 % (30-36); Mean Corpuscular Hemoglobin 29.1 PG (26-34); Mean Corpuscular Volume 87.9 fL (80-100); Monocytes Absolute Auto 900 /uL (0-900); Monocytes Percent Auto 5.1 % (3-14); Neutrophils Absolute Auto 15400 /uL (1500-7000); Neutrophils Percent Auto 89.8 % (50-75); Platelet Count 322 X10^3/uL (150-400); Red Blood Cell Count 3.78 X10^6/uL (4.0-5.2); Red Cell Distribution Width 14.1 % (11.6-14.8); White Blood Cell Count 17.1 X10^3/uL (4.5-11.0)
[2022-03-14 05:49] LABS: BUN Creatinine Ratio 31.6 (6-22); Blood Urea Nitrogen 42 mg/dL (7-17); Calcium 8.7 mg/dL (8.4-10.2); Carbon Dioxide 28 mmol/L (22-32); Chloride 96 mmol/L (98-107); Estimated Glomerular Filt Rate 39 mL/min (>60); Glucose 334 mg/dL (80-110); HEMOLYSIS < 15 (0-50); Magnesium 2.3 mg/dL (1.6-2.3); Potassium 4.1 mmol/L (3.4-5.1); Sodium 131 mmol/L (137-145)
[2022-03-14 05:59] LABS: Prothrombin Time 85.9 SECONDS (10.1-12.7)
[2022-03-14 06:03] LABS: INR 7.3 (0.9-1.3)
[2022-03-14] MEDS: LEVOTHYROXINE 150 MCG TABLET PO (06:11)
[2022-03-14] MEDS: INSULIN LISPRO 100 UNIT/ML 3ML VIAL SUBCUT ×4 (08:58→21:42)
[2022-03-14] MEDS: AMLODIPINE 5 MG TABLET PO ×2 (09:20→21:39)
[2022-03-14] MEDS: HYDROCORTISONE 10 MG TABLET 5 MG PO (09:20)
[2022-03-14] MEDS: ISOSORBIDE MONONITRATE ER 30 MG TABLET 120 MG PO (09:20)
[2022-03-14] MEDS: DULOXETINE 30 MG CAPSULE 60 MG PO (09:20)
[2022-03-14] MEDS: TRAMADOL 50 MG TABLET PO (09:21)
[2022-03-14] MEDS: CLOPIDOGREL 75 MG TABLET PO (09:21)
[2022-03-14] MEDS: predniSONE 20 MG TABLET 40 MG PO (09:21)
[2022-03-14] MEDS: FUROSEMIDE 40 MG TABLET PO (09:21)
[2022-03-14] MEDS: ALBUTEROL 2.5 MG/3 ML NEB (ADULT) INH ×4 (09:32→23:15)
[2022-03-14] MEDS: BUDESONIDE 0.5 MG/2 ML NEB INH ×2 (09:32→19:28)
[2022-03-14] MEDS: DOXYCYCLINE HYCLATE 100 MG TABLET PO ×2 (09:42→21:39)
[2022-03-14] MEDS: carvediloL 3.125 MG TABLET 6.25 MG PO ×2 (09:42→21:38)
[2022-03-14] MEDS: cefTRIAXone 1,000 MG in SODIUM CHLORIDE 0.9% 100 ML 200 MG IV (11:25)
--- NOTE | 2022-03-14 16:13 | CM.DPNOTE ---
DCP Note Placed call into patient's room d/t droplet precautions; introduced role Patient very appreciative for the call, states she and her spouse live at [facility] in [place] and it has been going very well. Patient/spouse live in an indp apt and have no need for addtl. assist at this time Patient plans to have her pick her up upon discharge and denies needs from this [facility] at this time CM team will plan to follow closely in case any DC needs or concerns arise Plan: DC home to [facility] w/spouse via pov expected upon medical clearance JW
--- NOTE | 2022-03-14 17:41 | P.PN_ITS ---
Subjective Subjective Date Patient Seen: 03/14/22 Interval history: 86 y/o female admitted for acute respiratory failure secondary to COPD and metapneumovirus. She continues to have cough. She is still wheezing and short of breath all though better Exam Vital Signs (past 8 hours): - 03/14/22 09:53 03/14/22 12:00 03/14/22 16:25 Temperature 97.0 F L Pulse Rate 76 70 67 Respiratory Rate 22 20 Blood Pressure 155/60 H Pulse Oximetry 92 93 95 Oxygen Delivery Method Nasal Cannula Nasal Cannula Oxygen Flow Rate 3.5 3 3 Fraction of Inspired Oxygen 100 Oxygen Delivery Method Nasal Cannula Oxygen Flow Rate 3 Narrative Exam Narrative: Elderly female lying in bed Resp Other: Lungs: diffuse wheezing bilaterally Cardio Other: CV: RRR nl Sl S2 GI Other: Abd; soft/non tender/ non distended Extrem Other: No edema Objective Labs Result Diagrams: 03/14/22 04:45 03/14/22 04:45 Labs: Laboratory Results - last 24 hr 03/14/22 03/14/22 03/14/22 04:45 04:45 04:45 WBC 17.1 H RBC 3.78 L Hgb 11.0 L Hct 33.2 L MCV 87.9 MCH 29.1 MCHC 33.1 RDW 14.1 Plt Count 322 Neut % (Auto) 89.8 H Lymph % (Auto) 5.0 L [place] % (Auto) 5.1 Eos % (Auto) 0.0 L Baso % (Auto) 0.1 Neut # (Auto) 57100 H Lymph # (Auto) 900 L [place] # (Auto) 900 Eos # (Auto) 0 Baso # (Auto) 0 PT 85.9 H D INR 7.3 H* Sodium 131 L Potassium 4.1 Chloride 96 L Carbon Dioxide 28 BUN 42 H Creatinine 1.33 H Estimated GFR 39 L BUN/Creatinine Ratio 31.6 H Glucose 334 H Calcium 8.7 Magnesium 2.3 PFSH Medical History Anemia Asthma COPD (chronic obstructive pulmonary disease) Coronary artery disease CVA (cerebral vascular accident) Depression Diabetes Distal radius fracture, left Distal radius fracture, right DJD (degenerative joint disease) Fibromyalgia History of renal dialysis Hyperlipidemia Hypertension Myocardial infarction Sleep apnea Spinal stenosis Thyroid disease Valvular heart disease Surgical History History of knee replacement History of phacoemulsification of cataract of right eye with intraocular lens implantation (12/02/17) Hx of CABG Hx of cholecystectomy Hx of tonsillectomy Family History (Updated 03/12/22 @ 15:12 by Fidel Nielsen DO) Mother Cancer Father Congestive heart failure Social History household members: spouse Smoking Status: Never smoker alcohol intake: current Assessment & Plan Assessment & Plan narrative: ?Acute respiratory failure with hypoxia secondary to COPD exacerbation secondary to viral pneumonia with human metapneumo virus with possible super imposed bacterial pneumonia -patient presents with 4 days of respiratory symptoms progressive to now shortness of breath.? Her chest x-ray shows a multifocal pneumonia.? Given elevated procalcitonin this may represent a bacterial superinfection and will continue antibiotics for now. -continue ceftriaxone and doxycycline for possible bacterial pneumonia -continue prednisone -contninue home COPD medications replaced for formulary alternatives. -appreciate RT assistance in therapy. 2. CAD, chronic ?- continue home plavix 3. Chronic heart failure, unknown type ?- no indication for TTE at this time, will try to see if there are records to determine her EF. Can continue home diuretic. 4. Paroxysmal atrial fibrillation on anticoagulation with Coumadin ?- hold coudadin for now, INR up to 6 today from 4 yesterday. Continue to monitor and re-dose when INR 2-3. -will re check INR, may need Vit K 5. CKD stage 3 ?- continue to monitor and renally dosed medications were appropriate 6. Type 2 diabetes -patient with an elevated glucoses have 253 on admission, she does not take medications at home currently.? This is likely in the setting of steroids which is given by EMS. -glucose rising today, will start lantus 10 U tonight and continue sliding scale. Will likely need further adjustments. BS elevated, will increase lantus ? Time Spent With Patient Critical Care time: I spent a total of [] minutes of critical care time on this patient's care today; this time is exclusive of procedural time. Quality VTE Deep Vein Thrombosis/Pulmonary Embolism Present on Admission: No
[2022-03-14] MEDS: INSULIN GLARGINE 100 UNIT/ML 3ML PEN 20 UNIT SUBCUT (21:41)
[2022-03-14] MEDS: AMITRIPTYLINE 25 MG TABLET PO (21:52)
[2022-03-15 04:00] VITALS: BP 152/57; PULSE 70; RESP 18; TEMP 36.6; O2SAT 93
[2022-03-15] MEDS: LEVOTHYROXINE 150 MCG TABLET PO (06:34)
[2022-03-15 06:41] LABS: Add Manual Diff / Slide Review NO; Basophils Absolute Auto 0 /uL (0-100); Basophils Percent Auto 0.3 % (0-2); Eosinophils Absolute Auto 0 /uL (0-450); Hemoglobin 11.4 g/dL (12.0-16.0); Lymphocytes Absolute Auto 1200 /uL (1100-4500); Lymphocytes Percent Auto 8.4 % (25-40); Mean Corpuscular HGB Conc 32.7 % (30-36); Mean Corpuscular Hemoglobin 28.7 PG (26-34); Mean Corpuscular Volume 87.6 fL (80-100); Monocytes Absolute Auto 1400 /uL (0-900); Monocytes Percent Auto 9.8 % (3-14); Neutrophils Absolute Auto 11500 /uL (1500-7000); Neutrophils Percent Auto 81.5 % (50-75); Platelet Count 341 X10^3/uL (150-400); Red Blood Cell Count 3.99 X10^6/uL (4.0-5.2); Red Cell Distribution Width 13.6 % (11.6-14.8); White Blood Cell Count 14.1 X10^3/uL (4.5-11.0)
[2022-03-15 06:49] LABS: BUN Creatinine Ratio 33.9 (6-22); Blood Urea Nitrogen 41 mg/dL (7-17); Calcium 8.8 mg/dL (8.4-10.2); Carbon Dioxide 32 mmol/L (22-32); Chloride 97 mmol/L (98-107); Estimated Glomerular Filt Rate 44 mL/min (>60); Glucose 280 mg/dL (80-110); HEMOLYSIS < 15 (0-50); Magnesium 1.9 mg/dL (1.6-2.3); Potassium 4.1 mmol/L (3.4-5.1); Sodium 134 mmol/L (137-145)
[2022-03-15 06:52] LABS: Prothrombin Time 71.5 SECONDS (10.1-12.7)
[2022-03-15 06:54] LABS: INR 6.1 (0.9-1.3)
[2022-03-15 07:05] LABS: NT-proBNP (BNP-Adult 18+) 1740 pg/mL (<450)
[2022-03-15 07:55] VITALS: BP 166/65; PULSE 73; RESP 20; TEMP 36.8; O2SAT 94
[2022-03-15] MEDS: ALBUTEROL 2.5 MG/3 ML NEB (ADULT) INH ×2 (08:34→14:17)
[2022-03-15] MEDS: BUDESONIDE 0.5 MG/2 ML NEB INH (08:35)
[2022-03-15 08:55] VITALS: O2SAT 94
[2022-03-15] MEDS: INSULIN LISPRO 100 UNIT/ML 3ML VIAL SUBCUT ×2 (09:41→12:47)
[2022-03-15 09:50] VITALS: BP 152/57; PULSE 70
[2022-03-15] MEDS: TRAMADOL 50 MG TABLET PO (09:50)
[2022-03-15] MEDS: carvediloL 3.125 MG TABLET 6.25 MG PO (09:50)
[2022-03-15] MEDS: DULOXETINE 30 MG CAPSULE 60 MG PO (09:50)
[2022-03-15] MEDS: DOXYCYCLINE HYCLATE 100 MG TABLET PO (09:51)
[2022-03-15] MEDS: predniSONE 20 MG TABLET 40 MG PO (09:51)
[2022-03-15] MEDS: AMLODIPINE 5 MG TABLET PO (09:51)
[2022-03-15] MEDS: FUROSEMIDE 40 MG TABLET PO (09:51)
[2022-03-15] MEDS: cefTRIAXone 1,000 MG in SODIUM CHLORIDE 0.9% 100 ML 200 MG IV (11:00)
[2022-03-15 11:55] VITALS: BP 153/56; PULSE 67; RESP 20; TEMP 36.4; O2SAT 95
--- NOTE | 2022-03-15 13:02 | P.DS_ITS ---
History of Present Illness History of Present Illness Date Patient Seen: 03/15/22 Chief complaint: COPD exacerbation Narrative: This is an 86-year-old female with a past medical history of pernicious anemia, COPD, prior CVA, depression, type 2 diabetes no longer on medications, CAD with a history of VT and acute heart failure leading to acute renal failure and need for prolonged dialysis which has now improved, aortic stenosis, CLAIRE, and hypothyroidism who presented to the emergency room for shortness of breath.? She had an oxygen saturation in the 70s with EMS and was transported here for further evaluation.? Her symptoms started approximately 4 days ago with initially chest congestion which then progressed to nasal congestion.? She tried rjsa-tet-cumtafr nasal sprays with some improvement but then this morning she had worsening cough and severe shortness of breath leading her to call EMS.? She can normally walk a mile at home unassisted, but is currently short of breath at rest.? She does have some sputum production but it is fairly minimal, and she continues to have a cough.? She denies any fevers, chills, known sick contacts but she does live in assisted living facility with 35 other apartments she says.? She denies any weight gain, lower extremity edema, chest pain, abdominal pain, nausea, or vomiting. She was given methylprednisolone by EMS, and was noted to be hypoxic on room air in the emergency room to less than 90%.? She is currently at 94% on 4 L after s teroids and breathing treatments in the emergency room.? She was also given antibiotics.? Initial laboratory evaluation was notable for mild leukocytosis with WBC of 16.1, hemoglobin of 11.8, with a normal platelet count.? INR was elevated at 4.0.? Chemistries revealed an elevated creatinine but this is at her baseline per patient report, and borderline sodium and potassium levels but nothing overtly abnormal.? ProBNP was elevated at 2990, troponin was within normal limits at 0.019.? Procalcitonin was elevated at 0.94, and TSH was 5.53.? Respiratory panel was positive for human metapneumovirus, negative for COVID- 19.? Chest x-ray showed bilateral patchy infiltrates consistent with a multifoc al pneumonia.? Patient was admitted for further treatment of her acute respiratory failure with hypoxia likely secondary to COPD exacerbation from human metapneumovirus pneumonia. Discharge Providers Provider Date of admission: 03/13/22 01:00 Discharge Date: 03/15/22 Primary care physician: GOOD Conteh Consults: 03/12/22 12:35 Consult to Respiratory Therapy Evaluate & Treat Comment: Physician Instructions: Evaluate and treat Discharge provider: Yessica Bacon MD Summary Hospital Course Discharge Diagnosis: 1. Acute Hypoxic Respiratory Failure 2. COPD Exacerbation 3. Viral Pneumonia secondary to Metapneumovirus 4. CAD 5. History of CHF 6. History of renal failure requiring dialysis for 13 months, no longer on HD 7. Aortic Stenosis 8. CLAIRE 9. Hypothryoidism 10. CKD-stage 3 11. Paroxysmal Atrial Fibrillation on coumadin with elevated INR 12. Type 2 diabetes with hyperglycemia secondary to steroids Hospital Course: Patient was admitted to the hospital for respiratory failure secondary to COPD/ Viral Pneumonia/ and superimposed bacterial pneumonia. She was treated with antibiotics, steroids, inhalers with improvement in her shortness of breath, cough, and wheezing. Patient had a chest xray on admission that demonstrated multifocal pneumonia. She had an elevated procalcitonin and will receive 5 days of antibiotics for this. She was given steroids and had elevations of her blood sugar. Patient will be placed on a rapid taper of steroids. She had a home oygen evaluation and did not require home oxygen. She made steady progress and was deemed appropriate for discharge home. Status at Discharge Cognitive/behavioral status at discharge: oriented Functional status at discharge: uses cane/walker Overall status at discharge: patient is progressing back to baseline Exam Vital Signs (past 8 hours): - 03/15/22 08:55 03/15/22 09:50 03/15/22 07:55 Temperature 98.2 F Pulse Rate 70 73 Respiratory Rate 20 Blood Pressure 152/57 H 166/65 H Pulse Oximetry 94 94 Oxygen Delivery Method Nasal Cannula Oxygen Flow Rate 2.5 3 03/15/22 10:49 03/15/22 11:55 Temperature 97.6 F Pulse Rate 67 Respiratory Rate 20 Blood Pressure 153/56 H Pulse Oximetry 95 Oxygen Delivery Method Nasal Cannula Oxygen Flow Rate 0 Fraction of Inspired Oxygen 100 Oxygen Delivery Method Nasal Cannula Oxygen Flow Rate 0 Narrative Exam Narrative: pleasant female in no acute distress Resp Other: Lungs: decreased breath sounds but no rhonchi crackles or wheezing Cardio Other: RRR nl Sl S2 2/6 KAMARI GI Other: Abd: soft/ non tender/ non distended Extrem Other: No edema Objective Labs Result Diagrams: 03/15/22 06:24 03/15/22 06:24 Labs: Laboratory Results - last 24 hr 03/15/22 03/15/22 03/15/22 06:24 06:24 06:24 WBC 14.1 H RBC 3.99 L Hgb 11.4 L Hct 35.0 L MCV 87.6 MCH 28.7 MCHC 32.7 RDW 13.6 Plt Count 341 Neut % (Auto) 81.5 H Lymph % (Auto) 8.4 L [place] % (Auto) 9.8 Eos % (Auto) 0.0 L Baso % (Auto) 0.3 Neut # (Auto) 79831 H Lymph # (Auto) 1200 [place] # (Auto) 1400 H Eos # (Auto) 0 Baso # (Auto) 0 PT 71.5 H D INR 6.1 H* Sodium 134 L Potassium 4.1 Chloride 97 L Carbon Dioxide 32 BUN 41 H Creatinine 1.21 H Estimated GFR 44 L BUN/Creatinine Ratio 33.9 H Glucose 280 H Calcium 8.8 Magnesium 1.9 NT-Pro-B Natriuret Pep 03/15/22 06:24 WBC RBC Hgb Hct MCV MCH MCHC RDW Plt Count Neut % (Auto) Lymph % (Auto) [place] % (Auto) Eos % (Auto) Baso % (Auto) Neut # (Auto) Lymph # (Auto) [place] # (Auto) Eos # (Auto) Baso # (Auto) PT INR Sodium Potassium Chloride Carbon Dioxide BUN Creatinine Estimated GFR BUN/Creatinine Ratio Glucose Calcium Magnesium NT-Pro-B Natriuret Pep 1740 H [facility] Medical History Anemia Asthma COPD (chronic obstructive pulmonary disease) Coronary artery disease CVA (cerebral vascular accident) Depression Diabetes Distal radius fracture, left Distal radius fracture, right DJD (degenerative joint disease) Fibromyalgia History of renal dialysis Hyperlipidemia Hypertension Myocardial infarction Sleep apnea Spinal stenosis Thyroid disease Valvular heart disease Surgical History History of knee replacement History of phacoemulsification of cataract of right eye with intraocular lens implantation (12/02/17) Hx of CABG Hx of cholecystectomy Hx of tonsillectomy Family History (Updated 03/12/22 @ 15:12 by Fidel Nielsen DO) Mother Cancer Father Congestive heart failure Social History household members: spouse Smoking Status: Never smoker alcohol intake: current Discharge Assessment & Plan Assessment and Plan Assessment: 1.Acute Hypoxic Respiratory Failure 2. COPD Exacerbation 3. Viral Pneumonia secondary to Metapneumovirus 4. CAD 5. History of CHF 6. History of renal failure requiring dialysis for 13 months, no longer on HD 7. Aortic Stenosis 8. CLAIRE 9. Hypothryoidism 10. CKD-stage 3 11. Paroxysmal Atrial Fibrillation on coumadin with elevated INR 12. Type 2 diabetes with hyperglycemia secondary to steroids Plan of Treatment: Continue total of 5 days of antibiotics Continue steroids for five days total then none No further coumadin until repeat INR Patient should get INR on Thursday Discharge Plan Discharge Plan Patient Disposition: Home Provider Discharge Comment: Do not take coumadin until f/u INR Need to get INR checked on Thursday Discharge orders & Medications Prescriptions: New doxycycline hyclate 100 mg capsule 100 mg PO BID Qty: 2 0RF prednisone 20 mg tablet 40 mg PO DAILY Qty: 1 0RF Continued carvedilol [Coreg] 6.25 MG tablet 6.25 mg PO BID Qty: 0 tramadol 50 mg tablet 50 mg PO BID fluticasone propion-salmeterol [Advair Diskus] 250-50 mcg/dose blister with device 1 ea INHALATION BID clopidogrel 75 mg tablet 75 mg PO DAILY isosorbide mononitrate 120 mg tablet extended release 24 hr 120 mg PO DAILY amitriptyline 25 mg tablet 25 mg PO BEDTIME levothyroxine [Synthroid] 150 mcg tablet 150 mcg PO DAILY rosuvastatin 40 mg tablet 40 mg PO DAILY duloxetine 60 mg capsule,delayed release(DR/EC) 60 mg PO DAILY hydrocodone-acetaminophen [[place]] 5-325 mg tablet 2 tab PO Q4-6H PRN (Reason: pain) Qty: 30 0RF amlodipine 5 mg Tablet 5 mg PO BID hydrocodone-acetaminophen [[place]] 5-325 mg tablet 1 tab PO Q4-6H PRN (Reason: pain) Qty: 10 0RF hydrocortisone 5 mg Tablet 5 mg PO BID furosemide 40 mg Tablet 40 mg PO DAILY fluticasone propion-salmeterol [Advair Diskus] 250-50 mcg/dose Blister With Device 1 inh INHALATION BID folic acid 1 mg tablet 1 mg PO DAILY albuterol 90 mcg/actuation Aerosol 90 mcg INHALATION 4-6XD PRN (Reason: COPD) potassium 20 mg Tablet,Chewable 40 mg PO DAILY diclofenac sodium 1 % gel 0.01 g TOPICAL DIRECTED PRN (Reason: Pain (Scale Score 1-3)) Discontinued warfarin [Coumadin] 5 MG tablet 5 mg PO QDAY Qty: 0 Rx Instructions: T, Th, Sat total of 7.5 Follow up/Referrals: Elsa Macario ARNP [Primary Care Provider] - Discharge Health Status Multidrug resistant organism: No MDRO Diet/Activity/Treatments Diet: Low-sodium and Low-cholesterol Discharge Data Primary Care Provider: Elsa Macario Quality VTE Deep Vein Thrombosis/Pulmonary Embolism Present on Admission: No
[2022-03-15 14:21] VITALS: PULSE 72; RESP 18; O2SAT 94
== END 2022-03-15 14:45 | disposition home or self-care (01) | DRG 193 ==
LOC: ED 10:34 → AC 10:58
PROVIDERS: Internal Medicine; Admitting Provider Internal Medicine; Emergency Provider Emergency Medicine; Family Provider Internal Medicine; PCP Nurse Practitioner Family; Referring Provider Emergency Medicine; Visit Provider Internal Medicine
DX: J12.3 Human metapneumovirus pneumonia (principal); J96.01 Acute respiratory failure with hypoxia; I13.0 Hypertensive heart and chronic kidney disease with heart failure and stage 1 through stage 4 chronic kidney disease, or unspecified chronic kidney disease; J44.1 Chronic obstructive pulmonary disease with (acute) exacerbation; J15.9 Unspecified bacterial pneumonia; I50.9 Heart failure, unspecified; N18.30 Chronic kidney disease, stage 3 unspecified; I48.0 Paroxysmal atrial fibrillation; I25.10 Atherosclerotic heart disease of native coronary artery without angina pectoris; E11.22 Type 2 diabetes mellitus with diabetic chronic kidney disease; E11.65 Type 2 diabetes mellitus with hyperglycemia; F32.A Depression, unspecified; E03.9 Hypothyroidism, unspecified; E78.5 Hyperlipidemia, unspecified; G47.30 Sleep apnea, unspecified; Z79.01 Long term (current) use of anticoagulants; Z86.73 Personal history of transient ischemic attack (TIA), and cerebral infarction without residual deficits; Z20.822 Contact with and (suspected) exposure to COVID-19; Z95.1 Presence of aortocoronary bypass graft; Z66 Do not resuscitate
CPT/HCPCS: 36415; 71045; 80048; 80053; 82550; 82962; 83605; 83690; 83735; 83880; 84145; 84443; 84484; 85025; 85610; 85730; 87040; 87070; 87205; 87633; 87635; 93005; 93010; 94640; 94760; 94762; 96365; 99285; C9803; G0378; J0696; J1815; J2543; J7613

== ENCOUNTER 2022-08-15 13:08 | Emergency (ER) | payer OTHER, MEDICARE, SELFPAY ==
[2022-03-12 12:45] VITALS: BMI 36.6
[2022-08-15] VITALS (10 sets, daily range): BP systolic 134–161; BP diastolic 62–70; PULSE 64–70; RESP 16–25; TEMP 36.6; O2SAT 94–98; BMI 31.3
--- NOTE | 2022-08-15 13:48 | DI.CT.S_ITS ---
PROCEDURE: CT CHEST ABD PEL W CON INDICATIONS: trauma, on coumadin TECHNIQUE: After the administration of intravenous contrast, 5 mm thick sections acquired from the lung apices to the symphysis. 2.5 mm thick coronal and sagittal reformats were acquired. Additional 7 mm thick coronal maximum intensity projection (MIP) reformats acquired through the lungs. Optional 10-minute delayed imaging may be performed from the kidneys to the bladder. For radiation dose reduction, the following was used: automated exposure control, adjustment of mA and/or kV according to patient size. COMPARISON: None. FINDINGS: Image quality: Excellent. CHEST: Lungs and pleura: No acute airspace opacities. Mild left apical scarring. Minimal bibasilar atelectasis. No pleural effusions or pneumothorax. Central and peripheral airways appear patent and normal in caliber. Mediastinum: Heart size is normal. No pericardial effusion. Coronary atherosclerotic vascular calcifications are noted. No mediastinal or hilar adenopathy by size criteria. Thoracic aorta and central pulmonary arteries are normal in size. Moderate atherosclerotic calcifications are noted in the thoracic aorta. Esophagus is normal in caliber. Small hiatal hernia. Chest wall: No axillary or supraclavicular adenopathy by size criteria. Thyroid gland is not well visualized.. Osseous structures of the chest appear unremarkable. Suspected nondisplaced fractures involving the posterior left 9th and 10th ribs. Healed rib fracture deformities of the right 9th, 10th, and 11th ribs. No acute compression fractures of the thoracic spine. Multilevel thoracic spondylosis. ABDOMEN: Solid organs: Liver is unremarkable. No evidence for traumatic injuries. Gallbladder is surgically absent. Mild central biliary ductal prominence likely sequela of cholecystectomy. Pancreas is unremarkable. Spleen is normal in size. No adrenal nodules. Kidneys demonstrate normal size, without hydronephrosis. Peritoneum and bowel: Bowel loops demonstrate normal wall thickness and caliber. No free fluid No free air. Moderate amount of fecal material seen throughout the colon. Scattered colonic diverticulosis without evidence for acute diverticulitis. Nodes and vessels: No retroperitoneal or mesenteric adenopathy by size criteria. Scattered atherosclerotic calcifications of the abdominal aorta and iliac vessels without aneurysmal dilatation. The inferior vena cava appears patent. Miscellaneous: No ventral hernias. PELVIS: Genitourinary: Bladder wall thickness appears normal for degree of distention. Miscellaneous: No inguinal hernias. No pelvic adenopathy. Bones: No suspicious bony lesions. No acute vertebral body compression fractures. Multilevel spondylosis of the imaged spine. No acute pelvic fractures identified. Degenerative changes of the sacroiliac joints and bilateral hips more pronounced on the left. IMPRESSION: 1. Suspected nondisplaced posterior left 9th and 10th rib fractures. No underlying pulmonary contusions or pneumothorax. 2. Otherwise, no evidence for acute traumatic injuries to the solid or hollow organs in the abdomen or pelvis. 3. Scattered colonic diverticulosis without acute diverticulitis. 4. Moderate multilevel spondylosis of the imaged spine. 5. Healed rib fracture deformities of the right posterior 9th, 10th, and 11th ribs. 6. Status post cholecystectomy with likely post cholecystectomy central biliary ductal prominence. 7. Atherosclerotic vascular disease. 8. Small hiatal hernia. Dictated by: Avery Prince M.D. on 08/15/2022 at 15:36 Approved by: Avery Prince M.D. on 08/15/2022 at 15:49
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
[2022-08-15] MEDS: TRAMADOL 50 MG TABLET 100 MG PO (14:05)
[2022-08-15 14:15] LABS: Add Manual Diff / Slide Review NO; Basophils Absolute Auto 0 /uL (0-100); Basophils Percent Auto 0.4 % (0-2); Eosinophils Absolute Auto 100 /uL (0-450); Eosinophils Percent Auto 0.7 % (2-4); Hematocrit 34.8 % (36-46); Hemoglobin 11.8 g/dL (12.0-16.0); Lymphocytes Absolute Auto 1500 /uL (1100-4500); Mean Corpuscular Hemoglobin 29.8 PG (26-34); Mean Corpuscular Volume 87.9 fL (80-100); Monocytes Absolute Auto 600 /uL (0-900); Monocytes Percent Auto 7.5 % (3-14); Neutrophils Absolute Auto 5600 /uL (1500-7000); Neutrophils Percent Auto 72.4 % (50-75); Platelet Count 195 X10^3/uL (150-400); Red Blood Cell Count 3.95 X10^6/uL (4.0-5.2); Red Cell Distribution Width 13.9 % (11.6-14.8); White Blood Cell Count 7.7 X10^3/uL (4.5-11.0)
[2022-08-15 14:21] LABS: INR 2.4 (0.9-1.3); Prothrombin Time 27.3 SECONDS (10.1-12.7)
[2022-08-15 14:28] LABS: Alanine Aminotransferase 18 IU/L (<35); Albumin 4.2 g/dL (3.5-5.0); Albumin Globulin Ratio 1.2 (1.0-2.8); Alkaline Phosphatase 64 U/L (38-126); Aspartate Aminotransferase 24 IU/L (14-36); BUN Creatinine Ratio 21.6 (6-22); Bilirubin Total 0.4 mg/dL (0.2-1.3); Blood Urea Nitrogen 25 mg/dL (7-17); Calcium 9.2 mg/dL (8.4-10.2); Carbon Dioxide 29 mmol/L (22-32); Chloride 101 mmol/L (98-107); Estimated Glomerular Filt Rate 46 mL/min (>60); Globulin 3.5 g/dL (1.7-4.1); Glucose 132 mg/dL (80-110); HEMOLYSIS < 15 (0-50); Potassium 4.9 mmol/L (3.4-5.1); Sodium 136 mmol/L (137-145); Total Protein 7.7 g/dL (6.3-8.2)
== END 2022-08-15 16:17 | disposition home or self-care (01) ==
PROVIDERS: Emergency Provider Emergency Medicine; Family Provider Internal Medicine; PCP Nurse Practitioner Family
DX: S22.42XA Multiple fractures of ribs, left side, initial encounter for closed fracture (principal); V89.2XXA Person injured in unspecified motor-vehicle accident, traffic, initial encounter
CPT/HCPCS: 36415; 71260; 74177; 80053; 81003; 85025; 85610; 99284; Q9967

== ENCOUNTER 2023-10-25 13:33 | Emergency (ER) | payer OTHER, MEDICARE, SELFPAY ==
[2022-03-12 12:45] VITALS: BMI 36.6
[2023-10-25] VITALS (11 sets, daily range): BP systolic 121–175; BP diastolic 60–86; PULSE 67–77; RESP 17–24; TEMP 37.1; O2SAT 94–97; BMI 31.3
--- NOTE | 2023-10-25 13:48 | DI.RAD.S_ITS ---
PROCEDURE: XR HIP W PEL IF DONE RT 2V INDICATIONS: Fall 1wk ago with pain and hematoma in right hip. TECHNIQUE: 2 views of the hip were acquired. COMPARISON: None. FINDINGS: Bones: No fractures or dislocations. No suspicious bony lesions. The visualized pelvic ring appears intact. Soft tissues: No suspicious soft tissue calcifications or masses. IMPRESSION: No acute bony abnormality. Approved by: Curtis Lopez M.D. on 10/25/2023 at 15:17
--- NOTE | 2023-10-25 14:20 | DI.CT.S_ITS ---
PROCEDURE: CT PELVIS W CON INDICATIONS: EXPANDING R HIP HEMATOMA X1 WK TECHNIQUE: After the administration of intravenous contrast, 5 mm thick sections acquired from the iliac crests to the symphysis. 5 mm coronal and sagittal reformats were acquired. For radiation dose reduction, the following was used: automated exposure control, adjustment of mA and/or kV according to patient size. COMPARISON: None. FINDINGS: Image quality: Diagnostic. Atherosclerotic vascular calcification in the aorta, iliac vessels. Common femoral and superficial femoral vessels unremarkable. No evidence of active contrast extravasation. The hematoma overlying the right greater tuberosity measures 3.1 x 5.4 cm. Bones: No aggressive osseous abnormality. Degenerative changes noted both hips. No fractures present. Multiple diverticula arise from sigmoid colon without evidence of diverticulitis. Lower lumbar spine degenerative disc disease and arthropathy IMPRESSION: Soft tissue hematoma overlying the right hip without evidence of active bleeding. Incidental diverticulosis and degenerative arthritic changes Approved by: Curtis Lopez M.D. on 10/25/2023 at 15:14
--- NOTE | 2023-10-25 14:24 | ED.LOWEXIN ---
HPI - Extremity Injury (Lower) General Chief Complaint: Extremity Injury, Lower Stated Complaint: fell 1 wk ago, pain/swelling right hip Time Seen by Provider: 10/25/23 13:50 Source: patient Mode of arrival: Ambulatory History of Present Illness HPI Narrative: 88-year-old female with history of warfarin use presents by private vehicle from home for right hip pain and swelling. Patient had ground level trip and fall 1 week prior with head injury. She did not seek medical care at that time. She has been ambulatory with her walker, walking at least 1 mi per day, but has had an increasing area of swelling and pain on her right thigh. Pain has begun to go down words extending into her knee. Last INR checked around [place] time. Related Data Home Medications Medication Instructions Recorded Confirmed carvedilol 6.25 mg tablet (Coreg) 6.25 mg PO BID ##0 01/23/17 03/12/22 amlodipine 5 mg tablet 5 mg PO BID 03/03/18 03/12/22 amitriptyline 25 mg tablet 25 mg PO BEDTIME 08/28/20 03/12/22 clopidogrel 75 mg tablet 75 mg PO DAILY 08/28/20 03/12/22 duloxetine 60 mg capsule,delayed 60 mg PO DAILY 08/28/20 03/12/22 release fluticasone 250 mcg-salmeterol 50 1 ea inhalation BID 08/28/20 03/12/22 mcg/dose blistr powdr for inhalation (Advair Diskus) isosorbide mononitrate 120 mg 120 mg PO DAILY 08/28/20 03/12/22 tablet,extended release 24 hr levothyroxine 150 mcg tablet 150 mcg PO DAILY 08/28/20 03/12/22 (Synthroid) rosuvastatin 40 mg tablet 40 mg PO DAILY 08/28/20 03/12/22 tramadol 50 mg tablet 50 mg PO BID 08/28/20 03/12/22 albuterol 90 mcg/actuation aerosol 90 mcg inhalation 4-6XD PRN COPD 03/12/22 03/12/22 inhaler diclofenac sodium 1 % topical gel 0.01 g topical DIRECTED PRN 03/12/22 03/12/22 Pain (Scale Score 1-3) fluticasone 250 mcg-salmeterol 50 1 inh inhalation BID 06/08/22 06/08/22 mcg/dose blistr powdr for inhalation (Advair Diskus) folic acid 1 mg tablet 1 mg PO DAILY 03/12/22 03/12/22 furosemide 40 mg tablet 40 mg PO DAILY 03/12/22 03/12/22 hydrocortisone 5 mg tablet 5 mg PO BID 03/12/22 03/12/22 potassium 20 mg chewable tablet 40 mg PO DAILY 03/12/22 03/12/22 Previous Rx's Medication Instructions Recorded hydrocodone 5 mg-acetaminophen 325 1 tab PO Q4-6H PRN pain #10 tabs 09/09/ mg tablet ([place]) hydrocodone 5 mg-acetaminophen 325 2 tab PO Q4-6H PRN pain #30 tabs 08/28/20 mg tablet ([place]) doxycycline hyclate 100 mg capsule 100 mg PO BID #2 caps 03/15/22 prednisone 20 mg tablet 40 mg (2 x 20 mg) PO DAILY #1 tab 03/15/22 tramadol 50 mg tablet 50 - 100 mg (1 - 2 x 50 mg) PO Q8H 08/15/22 PRN pain #20 tabs tramadol 50 mg tablet 50 mg PO Q8H PRN pain #10 tabs 10/25/23 Allergies Allergy/AdvReac Type Severity Reaction Status Date / Time shellfish derived Allergy Severe anaphalxis Verified 10/25/23 13:38 [SHELLFISH DERIVED] lisinopril Allergy Mild COUGH Verified 10/25/23 13:38 lovastatin Allergy Mild MOUTH Verified 10/25/23 13:38 BROKE OUT IN SORES niacin Allergy Mild RED AND Verified 10/25/23 13:38 ITCHY ALL OVER Sulfa (Sulfonamide Allergy Mild CHILDHOOD Verified 10/25/23 13:38 Antibiotics) REACTION azathioprine Allergy Unknown Verified 10/25/23 13:38 leflunomide AdvReac Unknown Verified 10/25/23 13:38 Review of Systems Review of Systems Narrative: Negative except as noted Patient History Medical History Anemia Asthma COPD (chronic obstructive pulmonary disease) Coronary artery disease CVA (cerebral vascular accident) Depression Diabetes Distal radius fracture, left Distal radius fracture, right DJD (degenerative joint disease) Fibromyalgia History of renal dialysis Hyperlipidemia Hypertension Myocardial infarction Sleep apnea Spinal stenosis Thyroid disease Valvular heart disease Surgical History History of phacoemulsification of cataract of right eye with intraocular lens implantation (12/02/17) Hx of cholecystectomy History of knee replacement Hx of tonsillectomy Hx of CABG Family History Mother Cancer Father Congestive heart failure Social History household members: spouse Smoking Status: Never smoker alcohol intake: current Smoking Status: Never smoker alcohol intake frequency: holidays/special occasions only Substance Use Type: does not use Exam Initial Vital Signs Initial Vital Signs: Vital Signs Temperature 98.7 F 10/25/23 13:36 Pulse Rate 73 10/25/23 13:36 Respiratory Rate 18 10/25/23 13:36 Blood Pressure 121/60 10/25/23 13:36 Pulse Oximetry 95 10/25/23 13:36 Oxygen Delivery Method Room Air 10/25/23 13:36 Const: Awake, alert, no acute distress, nontoxic appearing MSK: Large hematoma right hip with dependent bruising down to knee Skin: Warm, Dry, intact, large right-sided hematoma Neuro: AO x3, CN II-XII grossly intact, moves all extremities Course Course Course Narrative: Hematoma after falling 1 week ago. Patient states that her hematoma has expanded every day since the injury. Neurovascularly intact, patient has continued to ambulate, low suspicion for fracture. CT shows no active extravasation. CT noncontrast brain negative for acute findings. Patient's INR 3.9, she states goal is 2-3. Patient counseled to skip several doses of her warfarin until her INR goes back down to target level. Patient will call her primary care physician 1st thing Thursday morning for follow up, however otherwise she does have an INR check scheduled in 5 days. Compression bandage placed on thigh. Counseled to keep limb elevated, apply ice as needed for swelling. Pain medication sent to pharmacy of choice. Orders Ordered: ED Orders 10/25/23 13:48 XR hip w pel if done RT 2V Stat 10/25/23 14:20 CT pelvis w con Stat 10/25/23 14:27 CBC Auto Diff [Complete Blood Count AUTO DIFF] Stat CMP [Comprehensive Metabolic Panel] Stat PT [Prothrombin Time INR] Stat 10/25/23 14:39 CT head/brain wo con Stat Vital Signs Vital signs: Vital Signs - 8 hr 10/25/23 13:36 10/25/23 14:13 10/25/23 14:15 Temperature 98.7 F Pulse Rate 73 77 Respiratory Rate 18 Blood Pressure 121/60 175/86 H Pulse Oximetry 95 97 Oxygen Delivery Method Room Air 10/25/23 14:30 10/25/23 14:46 10/25/23 14:46 Temperature Pulse Rate 74 70 Respiratory Rate 24 22 Blood Pressure 145/63 H Pulse Oximetry 95 94 Oxygen Delivery Method 10/25/23 15:00 10/25/23 15:00 10/25/23 15:30 Temperature Pulse Rate 69 68 Respiratory Rate 20 17 Blood Pressure 148/65 H Pulse Oximetry 95 94 Oxygen Delivery Method 10/25/23 15:30 Temperature Pulse Rate Respiratory Rate Blood Pressure 156/70 H Pulse Oximetry Oxygen Delivery Method MDM - Extremity Injury (Lower) Lab Data 10/25/23 14:27 10/25/23 14:27 Labs: Lab Results 10/25/23 Range/Units 14:27 WBC 9.6 (4.5-11.0) X10^3/uL RBC 3.40 L (4.0-5.2) X10^6/uL Hgb 10.3 L (12.0-16.0) g/dL Hct 30.5 L (36-46) % MCV 89.5 (80-100) fL MCH 30.3 (26-34) PG MCHC 33.8 (30-36) % RDW 13.8 (11.6-14.8) % Plt Count 207 (150-400) X10^3/uL Neut % (Auto) 74.5 (50-75) % Lymph % (Auto) 15.5 L (25-40) % [place] % (Auto) 8.7 (3-14) % Eos % (Auto) 0.8 L (2-4) % Baso % (Auto) 0.5 (0-2) % Neut # (Auto) 7100 H (1272-5284) /uL Lymph # (Auto) 1500 (5858-6376) /uL [place] # (Auto) 800 (0-900) /uL Eos # (Auto) 100 (0-450) /uL Baso # (Auto) 0 (0-100) /uL PT 45.4 H (9.4-12.5) SECONDS INR 3.9 H (0.9-1.3) Sodium 132 L (137-145) mmol/L Potassium 4.2 (3.4-5.1) mmol/L Chloride 98 (98-107) mmol/L Carbon Dioxide 27 (22-32) mmol/L BUN 29 H (7-17) mg/dL Creatinine 1.32 H (0.52-1.04) mg/dL Estimated GFR 39 L (>60) mL/min BUN/Creatinine Ratio 22.0 (6-22) Glucose 203 H (80-110) mg/dL Calcium 9.1 (8.4-10.2) mg/dL Total Bilirubin 0.5 (0.2-1.3) mg/dL AST 24 (14-36) IU/L ALT 15 (<35) IU/L Alkaline Phosphatase 54 (38-126) U/L Total Protein 7.1 (6.3-8.2) g/dL Albumin 3.8 (3.5-5.0) g/dL Globulin 3.3 (1.7-4.1) g/dL Albumin/Globulin Ratio 1.2 (1.0-2.8) Discharge Plan Departure Patient Disposition: Home Clinical Impression: Hematoma of leg Qualifiers: Encounter type: initial encounter Laterality: right Qualified Code(s): S80.11XA - Contusion of right lower leg, initial encounter Instructions: DI for Hematoma (Bruise) Activity Restrictions/Additional Instructions: Your INR today was 3.9. Skip the next several doses of your warfarin until your INR reaches goal. Apply ice as needed for pain and swelling. Follow up with your primary care physician. You have been prescribed pain medications, these may make you drowsy and at increased risk of falling, make sure you take care with this medication to avoid falls. Prescriptions: New tramadol 50 mg tablet 50 mg PO Q8H PRN (Reason: pain) Qty: 10 0RF No Action carvedilol [Coreg] 6.25 MG tablet 6.25 mg PO BID Qty: 0 tramadol 50 mg tablet 50 mg PO BID fluticasone propion-salmeterol [Advair Diskus] 250-50 mcg/dose blister with device 1 ea INHALATION BID clopidogrel 75 mg tablet 75 mg PO DAILY isosorbide mononitrate 120 mg tablet extended release 24 hr 120 mg PO DAILY amitriptyline 25 mg tablet 25 mg PO BEDTIME levothyroxine [Synthroid] 150 mcg tablet 150 mcg PO DAILY rosuvastatin 40 mg tablet 40 mg PO DAILY duloxetine 60 mg capsule,delayed release(DR/EC) 60 mg PO DAILY hydrocodone-acetaminophen [[place]] 5-325 mg tablet 2 tab PO Q4-6H PRN (Reason: pain) Qty: 30 0RF tramadol 50 mg tablet 50 - 100 mg PO Q8H PRN (Reason: pain) Qty: 20 0RF amlodipine 5 mg Tablet 5 mg PO BID hydrocodone-acetaminophen [[place]] 5-325 mg tablet 1 tab PO Q4-6H PRN (Reason: pain) Qty: 10 0RF hydrocortisone 5 mg Tablet 5 mg PO BID furosemide 40 mg Tablet 40 mg PO DAILY fluticasone propion-salmeterol [Advair Diskus] 250-50 mcg/dose Blister With Device 1 inh INHALATION BID folic acid 1 mg tablet 1 mg PO DAILY albuterol 90 mcg/actuation Aerosol 90 mcg INHALATION 4-6XD PRN (Reason: COPD) potassium 20 mg Tablet,Chewable 40 mg PO DAILY diclofenac sodium 1 % gel 0.01 g TOPICAL DIRECTED PRN (Reason: Pain (Scale Score 1-3)) prednisone 20 mg tablet 40 mg PO DAILY Qty: 1 0RF doxycycline hyclate 100 mg capsule 100 mg PO BID Qty: 2 0RF Referrals: Elsa Macario ARNP [Primary Care Provider] - Stand Alone Forms: Patient Portal/API
--- NOTE | 2023-10-25 14:34 | PC.NURSE ---
While this RN inserts IV in LEFT arm crunching noises heard and felt what seemed to be bones shift. Pt reports chronic discomfort and crunching in her LEFT shoulder for past 6 months with inability to raise her LEFT arm completely. CMS intact in LEFT arm. Provider Zack notified.
--- NOTE | 2023-10-25 14:39 | DI.CT.S_ITS ---
PROCEDURE: CT HEAD/BRAIN WO CON INDICATIONS: GLF ON WARFARIN TECHNIQUE: Noncontrast 4.5 mm thick angled axial sections acquired from the foramen magnum to the vertex, with coronal and sagittal reformats. For radiation dose reduction, the following was used: automated exposure control, adjustment of mA and/or kV according to patient size. COMPARISON: [facility], CT, HEAD WITHOUT CONTRAST, 01/23/2017, 13:44. FINDINGS: Image quality: Diagnostic. CSF spaces: Basal cisterns are patent. No extra-axial fluid collections. Ventricles are normal in size and shape. Brain: No midline shift. No intracranial masses or hemorrhage. [place]-white matter interface is normal. Skull and face: Calvarium and visualized facial bones are intact, without suspicious lesions. Sinuses: Visualized sinuses and mastoids are clear. IMPRESSION: Atrophy and chronic ischemic change without intracranial hemorrhage or mass effect Approved by: Curtis Lopez M.D. on 10/25/2023 at 15:15
[2023-10-25 15:00] LABS: Add Manual Diff / Slide Review NO; Basophils Absolute Auto 0 /uL (0-100); Basophils Percent Auto 0.5 % (0-2); Eosinophils Absolute Auto 100 /uL (0-450); Eosinophils Percent Auto 0.8 % (2-4); Hematocrit 30.5 % (36-46); Hemoglobin 10.3 g/dL (12.0-16.0); Lymphocytes Absolute Auto 1500 /uL (1100-4500); Lymphocytes Percent Auto 15.5 % (25-40); Mean Corpuscular HGB Conc 33.8 % (30-36); Mean Corpuscular Hemoglobin 30.3 PG (26-34); Mean Corpuscular Volume 89.5 fL (80-100); Monocytes Absolute Auto 800 /uL (0-900); Monocytes Percent Auto 8.7 % (3-14); Neutrophils Absolute Auto 7100 /uL (1500-7000); Neutrophils Percent Auto 74.5 % (50-75); Platelet Count 207 X10^3/uL (150-400); Red Cell Distribution Width 13.8 % (11.6-14.8); White Blood Cell Count 9.6 X10^3/uL (4.5-11.0)
[2023-10-25 15:03] LABS: INR 3.9 (0.9-1.3); Prothrombin Time 45.4 SECONDS (9.4-12.5)
[2023-10-25 15:33] LABS: Alanine Aminotransferase 15 IU/L (<35); Albumin 3.8 g/dL (3.5-5.0); Albumin Globulin Ratio 1.2 (1.0-2.8); Alkaline Phosphatase 54 U/L (38-126); Aspartate Aminotransferase 24 IU/L (14-36); Bilirubin Total 0.5 mg/dL (0.2-1.3); Blood Urea Nitrogen 29 mg/dL (7-17); Calcium 9.1 mg/dL (8.4-10.2); Carbon Dioxide 27 mmol/L (22-32); Chloride 98 mmol/L (98-107); Estimated Glomerular Filt Rate 39 mL/min (>60); Globulin 3.3 g/dL (1.7-4.1); Glucose 203 mg/dL (80-110); HEMOLYSIS < 15 (0-50); Potassium 4.2 mmol/L (3.4-5.1); Sodium 132 mmol/L (137-145); Total Protein 7.1 g/dL (6.3-8.2)
== END 2023-10-25 17:00 | disposition home or self-care (01) ==
PROVIDERS: Emergency Provider Emergency Medicine; Family Provider Internal Medicine; PCP Nurse Practitioner Family
DX: S80.11XA Contusion of right lower leg, initial encounter (principal); S09.90XA Unspecified injury of head, initial encounter; W18.30XA Fall on same level, unspecified, initial encounter; Z79.01 Long term (current) use of anticoagulants; Z79.899 Other long term (current) drug therapy
CPT/HCPCS: 36415; 70450; 72193; 73502; 80053; 85025; 85610; 99283; 99284; Q9967

== ENCOUNTER 2024-01-08 15:23 | Emergency (ER) | payer MEDICARE, OTHER, SELFPAY ==
[2022-03-12 12:45] VITALS: BMI 36.6
[2024-01-08] VITALS (16 sets, daily range): BP systolic 144–181; BP diastolic 64–76; PULSE 69–98; RESP 22; TEMP 36.7; O2SAT 92–98; BMI 32.3
[2024-01-08 16:23] LABS: Add Manual Diff / Slide Review NO; Basophils Absolute Auto 0 /uL (0-100); Basophils Percent Auto 0.2 % (0-2); Eosinophils Absolute Auto 0 /uL (0-450); Eosinophils Percent Auto 0.2 % (2-4); Hemoglobin 12.3 g/dL (12.0-16.0); Lymphocytes Absolute Auto 400 /uL (1100-4500); Lymphocytes Percent Auto 8.6 % (25-40); Mean Corpuscular HGB Conc 33.3 % (30-36); Mean Corpuscular Hemoglobin 30.1 PG (26-34); Mean Corpuscular Volume 90.5 fL (80-100); Monocytes Absolute Auto 1000 /uL (0-900); Monocytes Percent Auto 21.3 % (3-14); Neutrophils Absolute Auto 3400 /uL (1500-7000); Neutrophils Percent Auto 69.7 % (50-75); Platelet Count 217 X10^3/uL (150-400); Red Blood Cell Count 4.09 X10^6/uL (4.0-5.2); White Blood Cell Count 4.9 X10^3/uL (4.5-11.0)
[2024-01-08 16:32] LABS: Alanine Aminotransferase 22 IU/L (<35); Albumin 3.9 g/dL (3.5-5.0); Albumin Globulin Ratio 1.1 (1.0-2.8); Alkaline Phosphatase 69 U/L (38-126); Aspartate Aminotransferase 25 IU/L (14-36); BUN Creatinine Ratio 21.7 (6-22); Bilirubin Total 0.5 mg/dL (0.2-1.3); Blood Urea Nitrogen 34 mg/dL (7-17); Calcium 8.9 mg/dL (8.4-10.2); Carbon Dioxide 21 mmol/L (22-32); Chloride 102 mmol/L (98-107); Estimated Glomerular Filt Rate 32 mL/min (>60); Globulin 3.5 g/dL (1.7-4.1); Glucose 144 mg/dL (80-110); HEMOLYSIS < 15 (0-50); Lipase 27 U/L (23-300); Potassium 4.6 mmol/L (3.4-5.1); Sodium 133 mmol/L (137-145); Total Protein 7.4 g/dL (6.3-8.2)
[2024-01-08] MEDS: SODIUM CHLORIDE 0.9% 1,000 ML 250 ML IV (17:51)
--- NOTE | 2024-01-08 19:06 | ED_ITS ---
HPI - Nausea/Vomiting/Diarrhea General Chief complaint: Nausea/Vomiting/Diarrhea Stated complaint: D/V T-3 Time Seen by Provider: 01/08/24 17:53 Source: patient and family Mode of arrival: Wheelchair History of Present Illness HPI Narrative: 88-year-old female presents by private vehicle from home for 3-4 days of nausea, vomiting, diarrhea. Reports vague midepigastric pain that she says is soreness from vomiting, otherwise denies complaints. Triage note states that patient was diaphoretic and ill-appearing on arrival, however on my assessment patient was resting comfortably in bed and sipping Gatorade from a cup. Patient denies recent medication changes, denies recent antibiotic use. Related Data Home Medications Medication Instructions Recorded Confirmed carvedilol 6.25 mg tablet (Coreg) 6.25 mg PO BID ##0 01/23/17 03/12/22 amlodipine 5 mg tablet 5 mg PO BID 03/03/18 03/12/22 amitriptyline 25 mg tablet 25 mg PO BEDTIME 08/28/20 03/12/22 clopidogrel 75 mg tablet 75 mg PO DAILY 08/28/20 03/12/22 duloxetine 60 mg capsule,delayed 60 mg PO DAILY 08/28/20 03/12/22 release fluticasone 250 mcg-salmeterol 50 1 ea inhalation BID 08/28/20 03/12/22 mcg/dose blistr powdr for inhalation (Advair Diskus) isosorbide mononitrate 120 mg 120 mg PO DAILY 08/28/20 03/12/22 tablet,extended release 24 hr levothyroxine 150 mcg tablet 150 mcg PO DAILY 08/28/20 03/12/22 (Synthroid) rosuvastatin 40 mg tablet 40 mg PO DAILY 08/28/20 03/12/22 tramadol 50 mg tablet 50 mg PO BID 08/28/20 03/12/22 albuterol 90 mcg/actuation aerosol 90 mcg inhalation 4-6XD PRN COPD 03/12/22 03/12/22 inhaler diclofenac sodium 1 % topical gel 0.01 g topical DIRECTED PRN 03/12/22 03/12/22 Pain (Scale Score 1-3) fluticasone 250 mcg-salmeterol 50 1 inh inhalation BID 03/12/22 03/12/22 mcg/dose blistr powdr for inhalation (Advair Diskus) folic acid 1 mg tablet 1 mg PO DAILY 03/12/22 03/12/22 furosemide 40 mg tablet 40 mg PO DAILY 03/12/22 03/12/22 hydrocortisone 5 mg tablet 5 mg PO BID 03/12/22 03/12/22 potassium 20 mg chewable tablet 40 mg PO DAILY 03/12/22 03/12/22 Previous Rx's Medication Instructions Recorded hydrocodone 5 mg-acetaminophen 325 1 tab PO Q4-6H PRN pain #10 tabs 09/09/18 mg tablet ([place]) hydrocodone 5 mg-acetaminophen 325 2 tab PO Q4-6H PRN pain #30 tabs 08/28/20 mg tablet ([place]) doxycycline hyclate 100 mg capsule 100 mg PO BID #2 caps 03/15/22 prednisone 20 mg tablet 40 mg (2 x 20 mg) PO DAILY #1 tab 03/15/22 tramadol 50 mg tablet 50 - 100 mg (1 - 2 x 50 mg) PO Q8H 08/15/22 PRN pain #20 tabs tramadol 50 mg tablet 50 mg PO Q8H PRN pain #10 tabs 10/25/23 ondansetron 4 mg disintegrating 4 mg PO Q8H PRN nausea and 01/08/24 tablet vomiting #30 tabs Allergies Allergy/AdvReac Type Severity Reaction Status Date / Time shellfish derived Allergy Severe anaphalxis Verified 10/25/23 13:38 [SHELLFISH DERIVED] lisinopril Allergy Mild COUGH Verified 10/25/23 13:38 lovastatin Allergy Mild MOUTH Verified 10/25/23 13:38 BROKE OUT IN SORES niacin Allergy Mild RED AND Verified 10/25/23 13:38 ITCHY ALL OVER Sulfa (Sulfonamide Allergy Mild CHILDHOOD Verified 10/25/23 13:38 Antibiotics) REACTION azathioprine Allergy Unknown Verified 10/25/23 13:38 leflunomide AdvReac Unknown Verified 10/25/23 13:38 Review of Systems Review of Systems Narrative: See HPI Patient History Medical History Sleep apnea Distal radius fracture, left Distal radius fracture, right History of renal dialysis Anemia Asthma COPD (chronic obstructive pulmonary disease) DJD (degenerative joint disease) Depression Diabetes Fibromyalgia Myocardial infarction Spinal stenosis Valvular heart disease CVA (cerebral vascular accident) Thyroid disease Coronary artery disease Hyperlipidemia Hypertension Surgical History History of phacoemulsification of cataract of right eye with intraocular lens implantation (12/02/17) Hx of cholecystectomy History of knee replacement Hx of tonsillectomy Hx of CABG Family History Mother Cancer Father Congestive heart failure Social History household members: spouse Smoking Status: Never smoker alcohol intake: current Smoking Status: Never smoker alcohol intake frequency: holidays/special occasions only Substance Use Type: does not use Exam Initial Vital Signs Initial Vital Signs: Vital Signs Temperature 98.0 F 01/08/24 15:42 Pulse Rate 98 H 01/08/24 15:42 Respiratory Rate 22 01/08/24 15:42 Blood Pressure 172/76 H 01/08/24 15:42 Pulse Oximetry 96 01/08/24 15:42 Oxygen Delivery Method Room Air 01/08/24 15:42 Const: Awake, alert, no acute distress, nontoxic appearing Cardiac: regular rate, regular rhythm RESP: unlabored, clear bilaterally, no wheezing GI: Soft, midepigastric tenderness to deep palpation without rebound or guarding Skin: Warm, Dry, intact, no rashes Neuro: AO x3, CN II-XII grossly intact, moves all extremities Course Orders Ordered: Discontinued Medications Sodium Chloride (Normal Saline 0.9%) 1,000 mls @ 250 mls/hr IV BOLUS ONE Stop: 01/08/24 21:32 Last Infusion: 01/08/24 20:40 Dose: Infused Documented By: Admin: 01/08/24 17:51 Dose: 250 mls/hr Documented By: SONIA Ondansetron HCl (Ondansetron 4 Mg Odt) 4 mg PO NOW PRN PRN Reason: Nausea And Vomiting Ondansetron HCl (Ondansetron 4 Mg/2 Ml Inj) 4 mg IV NOW PRN PRN Reason: Nausea And Vomiting Ondansetron HCl (Ondansetron 4 Mg Odt Prepack) 1 bottle MISC DIRECTED ONE Stop: 01/08/24 20:19 Last Admin: 01/08/24 20:36 Dose: 1 bottle Documented By: VIDHI Vital Signs Vital signs: Vital Signs - 8 hr 01/08/24 15:42 01/08/24 15:53 01/08/24 16:05 Temperature 98.0 F Pulse Rate 98 H Respiratory Rate 22 Blood Pressure 172/76 H 157/69 H 145/66 H Pulse Oximetry 96 Oxygen Delivery Method Room Air 01/08/24 16:07 01/08/24 16:30 01/08/24 16:30 Temperature Pulse Rate 86 82 Respiratory Rate Blood Pressure 144/65 H Pulse Oximetry 94 92 Oxygen Delivery Method Room Air 01/08/24 17:00 01/08/24 17:00 01/08/24 17:30 Temperature Pulse Rate 82 Respiratory Rate Blood Pressure 149/67 H 146/65 H Pulse Oximetry 92 Oxygen Delivery Method Room Air 01/08/24 17:30 01/08/24 18:00 01/08/24 18:00 Temperature Pulse Rate 78 77 Respiratory Rate Blood Pressure 150/66 H Pulse Oximetry 92 94 Oxygen Delivery Method 01/08/24 18:30 01/08/24 18:31 01/08/24 18:31 Temperature Pulse Rate 73 72 Respiratory Rate Blood Pressure 153/66 H Pulse Oximetry 95 95 Oxygen Delivery Method 01/08/24 19:00 01/08/24 19:01 01/08/24 19:01 Temperature Pulse Rate 69 69 Respiratory Rate Blood Pressure 154/65 H Pulse Oximetry 94 94 Oxygen Delivery Method 01/08/24 19:21 01/08/24 19:21 01/08/24 19:30 Temperature Pulse Rate 87 Respiratory Rate Blood Pressure 181/74 H 177/76 H Pulse Oximetry 98 Oxygen Delivery Method 01/08/24 19:30 01/08/24 19:51 01/08/24 19:51 Temperature Pulse Rate 85 76 Respiratory Rate Blood Pressure 176/73 H Pulse Oximetry 97 96 Oxygen Delivery Method MDM - Nausea/Vomiting/Diarrhea Differential Diagnosis Differential diagnosis: Likely traveler's diarrhea, food poisoning and gastroenteritis Lab Data 01/08/24 16:01 01/08/24 16:01 Labs: Lab Results 01/08/24 01/08/24 Range/Units 16:01 19:20 WBC 4.9 (4.5-11.0) X10^3/uL RBC 4.09 (4.0-5.2) X10^6/uL Hgb 12.3 (12.0-16.0) g/dL Hct 37.0 (36-46) % MCV 90.5 (80-100) fL MCH 30.1 (26-34) PG MCHC 33.3 (30-36) % RDW 14.0 (11.6-14.8) % Plt Count 217 (150-400) X10^3/uL Neut % (Auto) 69.7 (50-75) % Lymph % (Auto) 8.6 L (25-40) % [place] % (Auto) 21.3 H (3-14) % Eos % (Auto) 0.2 L (2-4) % Baso % (Auto) 0.2 (0-2) % Neut # (Auto) 3400 (5623-6108) /uL Lymph # (Auto) 400 L (4381-3454) /uL [place] # (Auto) 1000 H (0-900) /uL Eos # (Auto) 0 (0-450) /uL Baso # (Auto) 0 (0-100) /uL Sodium 133 L (137-145) mmol/L Potassium 4.6 (3.4-5.1) mmol/L Chloride 102 (98-107) mmol/L Carbon Dioxide 21 L (22-32) mmol/L BUN 34 H (7-17) mg/dL Creatinine 1.57 H (0.52-1.04) mg/dL Estimated GFR 32 L (>60) mL/min BUN/Creatinine Ratio 21.7 (6-22) Glucose 144 H (80-110) mg/dL Calcium 8.9 (8.4-10.2) mg/dL Total Bilirubin 0.5 (0.2-1.3) mg/dL AST 25 (14-36) IU/L ALT 22 (<35) IU/L Alkaline Phosphatase 69 (38-126) U/L Total Protein 7.4 (6.3-8.2) g/dL Albumin 3.9 (3.5-5.0) g/dL Globulin 3.5 (1.7-4.1) g/dL Albumin/Globulin Ratio 1.1 (1.0-2.8) Lipase 27 (23-300) U/L Urine Color Yellow Urine Appearance Clear Urine pH 5.0 (4.5-8.0) Ur Specific [place] 1.020 (1.000-1.035) Urine Protein Trace H (Negative) Urine Glucose (UA) Negative (Negative) g/dL Urine Ketones Trace H (NEGATIVE) Urine Occult Blood Negative (Negative) Urine Nitrate Negative (Negative) Urine Bilirubin Negative (NEGATIVE) Urine Urobilinogen 0.2 (0.2) E.U./dL Ur Leukocyte Esterase Negative (NEGATIVE) Urine RBC 0-1/hpf (0-5/HPF) Urine WBC 0-1/hpf (0-5/HPF) Ur Squamous Epith Cells 0-1 /hpf (0-5/HPF) Urine Bacteria Moderate (10-30) H (None) Hyaline Casts 0-1/lpf (None) Urine Mucus 1+ H (Negative) Ur Culture Indicated? Cult not indicated Vol Urine Centrifuged 10ml (spun) Imaging Data CT scan - abdomen/pelvis: Radiologist's Impression: PROCEDURE: CT ABDOMEN PELVIS WO CON INDICATIONS: 4 DAYS INTRACTABLE N/V/D TECHNIQUE: Axial sections were acquired from the lung bases to the pubic symphysis. Coronal and sagittal reformats were performed. For radiation dose reduction, the following was used: automated exposure control, adjustment of mA and/or kV according to patient size. COMPARISON: [facility], CT, CT CHEST ABD PEL W CON, 08/15/2022, 14:46. [facility], CT, CT PELVIS W CON, 10/25/2023, 15:42. FINDINGS: Image quality: Diagnostic. Lower Chest: No significant findings. URINARY: Right Kidney: No stones or hydronephrosis. Right Ureter: No hydroureter. Left Kidney: No stones or hydronephrosis. Left Ureter: No hydroureter. Bladder: Normal wall thickness. No stones. ABDOMEN: Liver: No contour-deforming solid mass. Gallbladder: Cholecystectomy. Biliary ducts: No biliary dilation for a post cholecystectomy patient, measuring 13 mm. Pancreas: No ductal dilation. Spleen: Size is within normal limits. Incidental note is made of an accessory splenule along the anterior aspect of the primary spleen. Adrenal Glands: No adrenal nodules. Stomach and Bowel: Liquid stool can be seen within colon within. No dilated colon can be seen. Colonic diverticulosis is seen, without findings of active diverticulitis. Several loops of dilated small bowel can be seen proximally, measuring up to 4.3 cm. Several loops of small bowel wall thickening can be seen. The distal small bowel is relatively decompressed. There is a relative transition point seen within the right lower quadrant. The stomach is decompressed at the time of this study, limiting its evaluation. Peritoneum: Generalized haziness can be seen along the mesentery. No abnormal intraperitoneal fluid. No free air. Ventral Wall: No hernia. Abdominal Nodes: No enlarged retroperitoneal or mesenteric lymph nodes. Vessels: Aorta and inferior vena cava are normal in size. Atherosclerotic calcification is noted. PELVIS: Pelvic Organs: The uterus appears normal for age. No adnexal masses are seen. Pelvic Nodes: Unremarkable. Miscellaneous: No inguinal hernias are seen. Bones: Remote, healed right posterior rib fractures seen. Mild levoconvex scoliotic curvature is noted. Age-appropriate bony degenerative changes are seen. IMPRESSION: These imaging findings are most compatible with enterocolitis. Several loops dilated small bowel can be seen, with thickened krishnamurthy. There is liquid stool seen within the colon, including distally, which is consistent with the given clinical history of diarrhea. Additional findings: Remote, healed right posterior rib fractures Accessory splenule Cholecystectomy Diverticulosis, without active diverticulitis Levoconvex scoliotic curvature Dictated by: Yuri Gage M.D. on 01/08/2024 at 19:04 Approved by: Yuri Gage M.D. on 01/08/2024 at 19:09 [facility] Narrative Medical decision making narrative: Well-appearing patient with several days of symptoms. She would received Zofran by the time of my evaluation and reports feeling much better, she was currently sleeping Gatorade without nausea or emesis. Abdomen is soft but she does have tenderness to deep palpation in the upper quadrants of her abdomen. Based on duration of symptoms, patient age, we will order CT scan of the abdomen and pelvis. Laboratory work is reviewed: WBC count 4.9, hemoglobin 12.3, platelets 217, sodium 133 (baseline), potassium 4.6, BUN 34, creatinine 1.57, GFR 32. This appears to be slightly decreased from patient's baseline, however this is expected given patient's 4 day history of GI symptoms. CT of the abdomen and pelvis shows findings consistent with gastroenteritis, no other acute intra- abdominal pathology identified. Patient and her family counseled on all lab and imaging findings. Recommended a light diet for the next several days and we will prescribe Zofran for nausea at home. Patient was counseled on the importance of maintaining fluid hydration while she still experiences GI symptoms. PCP follow up advised. Prepack sent with patient since her pharmacy of choice is closed on the weekend. Discharge Plan Departure Patient Disposition: Home Clinical Impression: Gastroenteritis Instructions: DI for Viral Gastroenteritis -- Adult Activity Restrictions/Additional Instructions: Make sure to stay hydrated by drinking plenty of fluids. Use the prescribed antinausea medication as needed for vomiting. Please follow up with your primary care provider Prescriptions: New ondansetron 4 mg tablet,disintegrating 4 mg PO Q8H PRN (Reason: nausea and vomiting) Qty: 30 0RF No Action carvedilol [Coreg] 6.25 MG tablet 6.25 mg PO BID Qty: 0 tramadol 50 mg tablet 50 mg PO BID fluticasone propion-salmeterol [Advair Diskus] 250-50 mcg/dose blister with device 1 ea INHALATION BID clopidogrel 75 mg tablet 75 mg PO DAILY isosorbide mononitrate 120 mg tablet extended release 24 hr 120 mg PO DAILY amitriptyline 25 mg tablet 25 mg PO BEDTIME levothyroxine [Synthroid] 150 mcg tablet 150 mcg PO DAILY rosuvastatin 40 mg tablet 40 mg PO DAILY duloxetine 60 mg capsule,delayed release(DR/EC) 60 mg PO DAILY hydrocodone-acetaminophen [[place]] 5-325 mg tablet 2 tab PO Q4-6H PRN (Reason: pain) Qty: 30 0RF tramadol 50 mg tablet 50 - 100 mg PO Q8H PRN (Reason: pain) Qty: 20 0RF amlodipine 5 mg Tablet 5 mg PO BID hydrocodone-acetaminophen [[place]] 5-325 mg tablet 1 tab PO Q4-6H PRN (Reason: pain) Qty: 10 0RF hydrocortisone 5 mg Tablet 5 mg PO BID furosemide 40 mg Tablet 40 mg PO DAILY fluticasone propion-salmeterol [Advair Diskus] 250-50 mcg/dose Blister With Device 1 inh INHALATION BID folic acid 1 mg tablet 1 mg PO DAILY albuterol 90 mcg/actuation Aerosol 90 mcg INHALATION 4-6XD PRN (Reason: COPD) potassium 20 mg Tablet,Chewable 40 mg PO DAILY diclofenac sodium 1 % gel 0.01 g TOPICAL DIRECTED PRN (Reason: Pain (Scale Score 1-3)) prednisone 20 mg tablet 40 mg PO DAILY Qty: 1 0RF doxycycline hyclate 100 mg capsule 100 mg PO BID Qty: 2 0RF tramadol 50 mg tablet 50 mg PO Q8H PRN (Reason: pain) Qty: 10 0RF Referrals: Elsa Macario ARNP [Primary Care Provider] - Stand Alone Forms: Patient Portal/API
[2024-01-08 19:35] LABS: Appearance Urine UA CLEAR; Bilirubin Urine UA NEGATIVE (NEGATIVE); Color Urine UA YELLOW; Glucose Urine UA NEGATIVE (Negative); Ketones Urine UA TRACE (NEGATIVE); Leukocyte Esterase Urine UA NEGATIVE (NEGATIVE); Nitrite Urine UA NEGATIVE (Negative); Occult Blood Urine UA NEGATIVE (Negative); Protein Urine UA TRACE (Negative); Urobilinogen Urine UA 0.2 E.U./dL (0.2)
[2024-01-08 19:41] LABS: RBC Urine 0-1/HPF (0-5/HPF); Urine Volume 10mL (spun); WBC Urine 0-1/HPF (0-5/HPF)
[2024-01-08 19:42] LABS: Bacteria Urine Moderate (10-30); Culture Indicated Urine Cult Not Indicated; Hyaline Casts Urine 0-1/LPF; Mucus Urine 1+ (Negative); Squamous Epithelial Cell Urine 0-1 /HPF (0-5/HPF)
[2024-01-08] MEDS: ONDANSETRON 4 MG ODT PREPACK 1 BOTTLE MISC (20:36)
== END 2024-01-08 20:41 | disposition home or self-care (01) ==
PROVIDERS: Emergency Medicine; Emergency Provider Emergency Medicine; Family Provider Internal Medicine; PCP Nurse Practitioner Family
DX: K52.9 Noninfective gastroenteritis and colitis, unspecified (principal); R10.13 Epigastric pain
CPT/HCPCS: 36415; 74176; 80053; 81001; 83690; 85025; 93005; 93010; 96360; 96361; 99284

== ENCOUNTER 2024-01-12 14:08 | Emergency (ER) | payer MEDICARE, OTHER, SELFPAY ==
[2022-03-12 12:45] VITALS: BMI 36.6
[2024-01-12 14:20] VITALS: BP 175/77; PULSE 77; RESP 20; TEMP 36.4; O2SAT 96; BMI 32.3
[2024-01-12 15:06] LABS: Add Manual Diff / Slide Review NO; Basophils Absolute Auto 0 /uL (0-100); Basophils Percent Auto 0.5 % (0-2); Eosinophils Absolute Auto 100 /uL (0-450); Eosinophils Percent Auto 1.4 % (2-4); Hemoglobin 12.1 g/dL (12.0-16.0); Lymphocytes Absolute Auto 1700 /uL (1100-4500); Lymphocytes Percent Auto 19.1 % (25-40); Mean Corpuscular HGB Conc 33.6 % (30-36); Mean Corpuscular Hemoglobin 30.2 PG (26-34); Monocytes Absolute Auto 700 /uL (0-900); Monocytes Percent Auto 7.9 % (3-14); Neutrophils Absolute Auto 6200 /uL (1500-7000); Neutrophils Percent Auto 71.1 % (50-75); Platelet Count 339 X10^3/uL (150-400); Red Cell Distribution Width 13.9 % (11.6-14.8); White Blood Cell Count 8.8 X10^3/uL (4.5-11.0)
[2024-01-12 15:30] LABS: Alanine Aminotransferase 21 IU/L (<35); Albumin 3.9 g/dL (3.5-5.0); Albumin Globulin Ratio 1.1 (1.0-2.8); Alkaline Phosphatase 53 U/L (38-126); Aspartate Aminotransferase 29 IU/L (14-36); BUN Creatinine Ratio 17.1 (6-22); Bilirubin Total 0.5 mg/dL (0.2-1.3); Blood Urea Nitrogen 27 mg/dL (7-17); Calcium 9.1 mg/dL (8.4-10.2); Carbon Dioxide 23 mmol/L (22-32); Chloride 106 mmol/L (98-107); Estimated Glomerular Filt Rate 31 mL/min (>60); Globulin 3.6 g/dL (1.7-4.1); Glucose 152 mg/dL (80-110); Sodium 137 mmol/L (137-145); Total Protein 7.5 g/dL (6.3-8.2)
[2024-01-12 15:31] LABS: HEMOLYSIS 66 (0-50); Potassium 4.6 mmol/L (3.4-5.1)
[2024-01-12 15:37] LABS: PTT Partial Thromboplastin Tim 58 SECONDS (25.1-36.5); Prothrombin Time 122.1 SECONDS (9.4-12.5)
[2024-01-12 15:39] LABS: INR 10.4 (0.9-1.3)
--- NOTE | 2024-01-12 18:00 | ED_ITS ---
HPI - Recheck/Abnormal Lab/Rx General Chief Complaint: Recheck/Abnormal Lab/Rx Stated Complaint: Sent from [facility] Blood too thin, on thinners Time Seen by Provider: 01/12/24 17:54 Source: patient Mode of arrival: Ambulatory History of Present Illness HPI narrative: Patient is an 88-year-old female. She is on Coumadin secondary to cardiac issues. Had an INR drawn today as an outpatient. He was noted that it was greater than 10. She has no symptoms. No active bleeding. She was told to come to the emergency department by her primary doctor. Related Data Home Medications Medication Instructions Recorded Confirmed carvedilol 6.25 mg tablet (Coreg) 6.25 mg PO BID ##0 01/23/17 03/12/22 amlodipine 5 mg tablet 5 mg PO BID 03/03/18 03/12/22 amitriptyline 25 mg tablet 25 mg PO BEDTIME 08/28/20 03/12/22 clopidogrel 75 mg tablet 75 mg PO DAILY 08/28/20 03/12/22 duloxetine 60 mg capsule,delayed 60 mg PO DAILY 08/28/20 03/12/22 release fluticasone 250 mcg-salmeterol 50 1 ea inhalation BID 08/28/20 03/12/22 mcg/dose blistr powdr for inhalation (Advair Diskus) isosorbide mononitrate 120 mg 120 mg PO DAILY 08/28/20 03/12/22 tablet,extended release 24 hr levothyroxine 150 mcg tablet 150 mcg PO DAILY 08/28/20 03/12/22 (Synthroid) rosuvastatin 40 mg tablet 40 mg PO DAILY 08/28/20 03/12/22 tramadol 50 mg tablet 50 mg PO BID 08/28/20 03/12/22 albuterol 90 mcg/actuation aerosol 90 mcg inhalation 4-6XD PRN COPD 03/12/22 03/12/22 inhaler diclofenac sodium 1 % topical gel 0.01 g topical DIRECTED PRN 03/12/22 03/12/22 Pain (Scale Score 1-3) fluticasone 250 mcg-salmeterol 50 1 inh inhalation BID 03/12/22 03/12/22 mcg/dose blistr powdr for inhalation (Advair Diskus) folic acid 1 mg tablet 1 mg PO DAILY 03/12/22 03/12/22 furosemide 40 mg tablet 40 mg PO DAILY 03/12/22 03/12/22 hydrocortisone 5 mg tablet 5 mg PO BID 03/12/22 03/12/22 potassium 20 mg chewable tablet 40 mg PO DAILY 03/12/22 03/12/22 Previous Rx's Medication Instructions Recorded hydrocodone 5 mg-acetaminophen 325 1 tab PO Q4-6H PRN pain #10 tabs 09/09/18 mg tablet ([place]) hydrocodone 5 mg-acetaminophen 325 2 tab PO Q4-6H PRN pain #30 tabs 08/28/20 mg tablet ([place]) doxycycline hyclate 100 mg capsule 100 mg PO BID #2 caps 03/15/22 prednisone 20 mg tablet 40 mg (2 x 20 mg) PO DAILY #1 tab 03/15/22 tramadol 50 mg tablet 50 - 100 mg (1 - 2 x 50 mg) PO Q8H 08/15/22 PRN pain #20 tabs tramadol 50 mg tablet 50 mg PO Q8H PRN pain #10 tabs 10/25/23 ondansetron 4 mg disintegrating 4 mg PO Q8H PRN nausea and 01/08/24 tablet vomiting #30 tabs Allergies Allergy/AdvReac Type Severity Reaction Status Date / Time shellfish derived Allergy Severe anaphalxis Verified 10/25/23 13:38 [SHELLFISH DERIVED] lisinopril Allergy Mild COUGH Verified 10/25/23 13:38 lovastatin Allergy Mild MOUTH Verified 10/25/23 13:38 BROKE OUT IN SORES niacin Allergy Mild RED AND Verified 10/25/23 13:38 ITCHY ALL OVER Sulfa (Sulfonamide Allergy Mild CHILDHOOD Verified 10/25/23 13:38 Antibiotics) REACTION azathioprine Allergy Unknown Verified 10/25/23 13:38 leflunomide AdvReac Unknown Verified 10/25/23 13:38 Review of Systems Review of Systems Narrative: See HPI Patient History Medical History Sleep apnea Distal radius fracture, left Distal radius fracture, right History of renal dialysis Anemia Asthma COPD (chronic obstructive pulmonary disease) DJD (degenerative joint disease) Depression Diabetes Fibromyalgia Myocardial infarction Spinal stenosis Valvular heart disease CVA (cerebral vascular accident) Thyroid disease Coronary artery disease Hyperlipidemia Hypertension Surgical History History of phacoemulsification of cataract of right eye with intraocular lens implantation (12/02/17) Hx of cholecystectomy History of knee replacement Hx of tonsillectomy Hx of CABG Family History Mother Cancer Father Congestive heart failure Social History household members: spouse Smoking Status: Never smoker alcohol intake: current Smoking Status: Never smoker alcohol intake frequency: holidays/special occasions only Substance Use Type: does not use Exam Initial Vital Signs Initial Vital Signs: Vital Signs Temperature 97.5 F L 01/12/24 14:20 Pulse Rate 77 01/12/24 14:20 Respiratory Rate 20 01/12/24 14:20 Blood Pressure 175/77 H 01/12/24 14:20 Pulse Oximetry 96 01/12/24 14:20 Oxygen Delivery Method Room Air 01/12/24 14:20 HENMT Head: normal to inspection and normocephalic Resp Effort & Inspection: normal respiratory effort Cardio Rate: regular rate GI Inspection: normal to inspection Course Orders Ordered: ED Orders 01/12/24 17:30 Urine Microscopic Stat Discontinued Medications Phytonadione (Phytonadione (Vit K1) 5 Mg Tablet) 5 mg PO NOW ONE Stop: 01/12/24 18:02 Last Admin: 01/12/24 18:13 Dose: 5 mg Documented By: DARLENE Vital Signs Vital signs: Vital Signs - 8 hr 01/12/24 18:36 Temperature 98.6 F Pulse Rate 70 Respiratory Rate 16 Blood Pressure 155/70 H Pulse Oximetry 95 Oxygen Delivery Method Room Air MDM - Recheck/Abnormal Lab/Rx Lab Data Attestation: I reviewed the patient's lab results. 01/12/24 14:55 01/12/24 14:55 Labs: Lab Results 01/12/24 01/12/24 Range/Units 14:55 17:30 WBC 8.8 (4.5-11.0) X10^3/uL RBC 4.00 (4.0-5.2) X10^6/uL Hgb 12.1 (12.0-16.0) g/dL Hct 36.0 (36-46) % MCV 90.0 (80-100) fL MCH 30.2 (26-34) PG MCHC 33.6 (30-36) % RDW 13.9 (11.6-14.8) % Plt Count 339 (150-400) X10^3/uL Neut % (Auto) 71.1 (50-75) % Lymph % (Auto) 19.1 L (25-40) % Carlton % (Auto) 7.9 (3-14) % Eos % (Auto) 1.4 L (2-4) % Baso % (Auto) 0.5 (0-2) % Neut # (Auto) 6200 (4671-0598) /uL Lymph # (Auto) 1700 (0919-9638) /uL Carlton # (Auto) 700 (0-900) /uL Eos # (Auto) 100 (0-450) /uL Baso # (Auto) 0 (0-100) /uL PT 122.1 H (9.4-12.5) SECONDS INR 10.4 H* (0.9-1.3) APTT 58 H (25.1-36.5) SECONDS Sodium 137 (137-145) mmol/L Potassium 4.6 (3.4-5.1) mmol/L Chloride 106 (98-107) mmol/L Carbon Dioxide 23 (22-32) mmol/L BUN 27 H (7-17) mg/dL Creatinine 1.58 H (0.52-1.04) mg/dL Estimated GFR 31 L (>60) mL/min BUN/Creatinine Ratio 17.1 (6-22) Glucose 152 H (80-110) mg/dL Calcium 9.1 (8.4-10.2) mg/dL Total Bilirubin 0.5 (0.2-1.3) mg/dL AST 29 (14-36) IU/L ALT 21 (<35) IU/L Alkaline Phosphatase 53 (38-126) U/L Total Protein 7.5 (6.3-8.2) g/dL Albumin 3.9 (3.5-5.0) g/dL Globulin 3.6 (1.7-4.1) g/dL Albumin/Globulin Ratio 1.1 (1.0-2.8) Urine RBC 1-5/hpf (0-5/HPF) Urine WBC 1-5/hpf (0-5/HPF) Ur Squamous Epith Cells 1-5 /hpf (0-5/HPF) Urine Bacteria Occasional (0-1) (None) Hyaline Casts 1-5/lpf (None) Ur Culture Indicated? Cult not indicated Vol Urine Centrifuged 10ml (spun) MDM Narrative Medical decision making narrative: INR is 10.4 however she is asymptomatic and has no signs of bleeding. She was given 1 dose of oral vitamin K. Will have her contact her primary doctor tomorrow to discuss repeat lab draws. She was given return precautions. She was instructed not take her Coumadin until she sees her primary doctor. She expressed understanding and agreement. Discharge Plan Departure Patient Disposition: Home Clinical Impression: Supratherapeutic INR Activity Restrictions/Additional Instructions: You can take all of your medications as directed however stop taking your Coumadin/warfarin. In the morning contact your primary care doctor as you are going to need a repeat INR check in the next 2-3 days. Do not take your warfarin until you get your INR checked. Your primary doctor will then direct you on when and how to start you should start your Coumadin/warfarin again. Prescriptions: No Action carvedilol [Coreg] 6.25 MG tablet 6.25 mg PO BID Qty: 0 tramadol 50 mg tablet 50 mg PO BID fluticasone propion-salmeterol [Advair Diskus] 250-50 mcg/dose blister with device 1 ea INHALATION BID clopidogrel 75 mg tablet 75 mg PO DAILY isosorbide mononitrate 120 mg tablet extended release 24 hr 120 mg PO DAILY amitriptyline 25 mg tablet 25 mg PO BEDTIME levothyroxine [Synthroid] 150 mcg tablet 150 mcg PO DAILY rosuvastatin 40 mg tablet 40 mg PO DAILY duloxetine 60 mg capsule,delayed release(DR/EC) 60 mg PO DAILY hydrocodone-acetaminophen [[place]] 5-325 mg tablet 2 tab PO Q4-6H PRN (Reason: pain) Qty: 30 0RF tramadol 50 mg tablet 50 - 100 mg PO Q8H PRN (Reason: pain) Qty: 20 0RF amlodipine 5 mg Tablet 5 mg PO BID hydrocodone-acetaminophen [[place]] 5-325 mg tablet 1 tab PO Q4-6H PRN (Reason: pain) Qty: 10 0RF hydrocortisone 5 mg Tablet 5 mg PO BID furosemide 40 mg Tablet 40 mg PO DAILY fluticasone propion-salmeterol [Advair Diskus] 250-50 mcg/dose Blister With Device 1 inh INHALATION BID folic acid 1 mg tablet 1 mg PO DAILY albuterol 90 mcg/actuation Aerosol 90 mcg INHALATION 4-6XD PRN (Reason: COPD) potassium 20 mg Tablet,Chewable 40 mg PO DAILY diclofenac sodium 1 % gel 0.01 g TOPICAL DIRECTED PRN (Reason: Pain (Scale Score 1-3)) prednisone 20 mg tablet 40 mg PO DAILY Qty: 1 0RF doxycycline hyclate 100 mg capsule 100 mg PO BID Qty: 2 0RF tramadol 50 mg tablet 50 mg PO Q8H PRN (Reason: pain) Qty: 10 0RF ondansetron 4 mg tablet,disintegrating 4 mg PO Q8H PRN (Reason: nausea and vomiting) Qty: 30 0RF Referrals: Elsa Macario ARNP [Primary Care Provider] - Stand Alone Forms: Patient Portal/API
[2024-01-12] MEDS: PHYTONADIONE (VIT K1) 5 MG TABLET PO (18:13)
--- NOTE | 2024-01-12 18:35 | PC.NURSE ---
Pt reports no headache, blurred vision, or blood coming out of any orifices (i.e., nose, rectal, oral).
[2024-01-12 18:36] VITALS: BP 155/70; PULSE 70; RESP 16; TEMP 37; O2SAT 95
[2024-01-12 19:35] LABS: Bacteria Urine Occasional (0-1); RBC Urine 1-5/HPF (0-5/HPF); Squamous Epithelial Cell Urine 1-5 /HPF (0-5/HPF); Urine Volume 10mL (spun); WBC Urine 1-5/HPF (0-5/HPF)
[2024-01-12 19:36] LABS: Culture Indicated Urine Cult Not Indicated; Hyaline Casts Urine 1-5/LPF
== END 2024-01-12 18:37 | disposition home or self-care (01) ==
PROVIDERS: Emergency Medicine; Emergency Provider Emergency Medicine; Family Provider Internal Medicine; PCP Nurse Practitioner Family
DX: R79.1 Abnormal coagulation profile (principal)
CPT/HCPCS: 80053; 81015; 85025; 85610; 85730; 99283